=== PATIENT | male | born 1955 | race Caucasian/White ===

== ENCOUNTER 2018-04-05 15:46 | Inpatient (IN) ==
--- NOTE | 2018-04-05 20:49 | Internal Med History&Physical ---
Date of Encounter: 04/05/18 Time of Encounter: 20:49 Internal Medicine - H&P: HPI Chief complaint: LLE pain, redness, and swelling Admitted From: Home Plans for Post Hospital Care: Home History of present illness: Mr. Burciaga is a 63 year old male aneurysm, DM-II, diabetic neuropathy, Hodgkins lymphoma (pt states he is in remission), HTN, obesity, HLD who presents with LLE cellulitis. Pt states symptoms developed about 4 days ago ad has progressed up his left thigh to his left groin. He denies any bites or bruises he is aware of. He denies having any fevers or chills, N/V or diarrhea. He does report falling but he's not sure why. He is also unsure if he lost consciousness. In ED at [place] WBC 25.5, hgb 11.6, hct 35.0, plt 281. Na 135, K 5.7, BUN 34, Cr 1.86. HgbA1c 6.5. ALT 13, AST 38, alk phos 73 Urine analysis with small leuks, WBC 3-5 and few bacteria Chest x ray HISTORY: ORDERING SYSTEM PROVIDED HISTORY: cough FINDINGS: The heart size is enlarged but unchanged. The pulmonary vasculature is also within normal limits. No acute infiltrates are seen. The costophrenic angles are sharp bilaterally. No pneumothoraces are noted.There are scattered calcified granulomas. XR/XR chest 1V IMPRESSION: 1. No active pulmonary disease. CT LE CT/CT LE LT wo con IMPRESSION: 1. Subcutaneous stranding and skin thickening along the left groin and left mid thigh most suggestive of cellulitis. No organized drainable fluid collection identified. No evidence for subcutaneous gas. 2. Nonspecific subcutaneous edema of the distal left lower extremity. Correlate clinically for cellulitis. No organized fluid collection identified. 3. Left inguinal lymphadenopathy, likely reactive. 4. Small locule of gas with associated subcutaneous edema at the level of the great toe most compatible with ulceration. No drainable fluid collection identified. No CT evidence for osteomyelitis of the great toe. 5. No acute osseous abnormality identified. 6. Atherosclerotic disease. Past Med Surg Social Fam HX - Past Medical History Medical history: arthritis, cancer, diabetes, hypertension Additional medical history: irreg heart beat. pulm emboli 2011. 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 Psychiatric history: no psych history - Past Surgical History Surgical History: cancer surgery, cataract - Social History Smoking Status: Never smoker Smokeless Tobacco Status: No Alcohol use: none Drug use: none Internal Medicine - H&P: Meds Aspirin [Lo-Dose Aspirin EC] 81 mg PO DAILY 01/15/17 [History] Atenolol [Tenormin] 50 mg PO DAILY 01/15/17 [History] Atorvastatin Calcium 80 mg PO DAILY 01/15/17 [History] Ezetimibe [Zetia] 10 mg PO DAILY 01/15/17 [History] Gabapentin [Neurontin] 800 mg PO TID 01/15/17 [History] GlipiZIDE [Glipizide ER] 10 mg PO DAILY 01/15/17 [History] Lisinopril [Zestril] 40 mg PO DAILY 01/15/17 [History] Metformin HCl [Glucophage] 1,000 mg PO BID 01/15/17 [History] Allergy/AdvReac Type Severity Reaction Status Date / Time acetaminophen [From Percocet] Allergy Rash Verified 04/05/18 09:31 Oxycodone [From Percocet] Allergy Rash Verified 04/05/18 09:31 Penicillins Allergy Rash Verified 04/05/18 09:31 All Systems PM: A 10-system review of systems was performed and is negative for pertinent findings except as documented above in the HPI. - Constitutional Vitals: Temp Pulse Resp BP Pulse Ox 97.9 F 75 16 122/73 100 04/05/18 18:32 04/05/18 18:32 04/05/18 18:32 04/05/18 18:32 04/05/18 18:32 Exam: LLE erythema spreading from ankle to left groin. - Head Head exam: Present: atraumatic, normocephalic - Eye Eye exam: Present: PERRL, conjuntiva pink, sclera anicteric Pupils: Present: PERRL - Neck Neck exam general surgery: Present: supple, trachea midline. Absent: lymphadenopathy - Respiratory Respiratory exam: Present: CTAB. Absent: accessory muscle use, rales, rhonchi, wheezes - Cardiovascular Cardiovascular exam: Present: RRR, +S1, +S2. Absent: diastolic murmur, gallop, rubs, systolic murmur - GI/Abdominal GI/Abdominal exam: Present: normal bowel sounds, soft, no peritoneal signs. Absent: distended, tenderness - Extremities Exam Extremities exam: Present: warm, radial pulses palpable and symmetrical. Absent: calf tenderness, cyanotic, pedal edema - Neurological Exam Neurological exam: Present: CN II-XII intact, oriented X3, no focal deficits. Absent: pronater drift, facial droop, speech deficit - Skin Skin exam: Present: dry, intact - Assessment and plan (1) Cellulitis of left lower extremity Current Visit: No Status: Acute Assessment and plan: Pt treated with Cefepime dur o PCN allergy. Will continue Cefepime for now. (2) Hyperkalemia Current Visit: No Status: Acute Assessment and plan: Will recheck K following fluid hydration. (3) Rhabdomyolysis Current Visit: No Status: Acute Assessment and plan: CPK 1561. Will check urine myoglobin. Will give IVF and recheck levels in am. Qualifiers: Qualified Code(s): M62.82 - Rhabdomyolysis (4) Hyponatremia Current Visit: Yes Status: Acute Assessment and plan: Will give IVF and recheck in am. (5) History of Hodgkin's lymphoma Current Visit: Yes Status: Acute Assessment and plan: Pt states he is in remission (6) Diabetes Current Visit: Yes Status: Acute Qualifiers: Diabetes mellitus type: type 2 Diabetes mellitus terminal superintendent insulin use: without terminal superintendent use Diabetes mellitus complication detail: with autonomic neuropathy Qualified Code(s): E11.43 - Type 2 diabetes mellitus with diabetic autonomic (poly)neuropathy (7) HTN (hypertension) Current Visit: Yes Status: Acute Assessment and plan: Will resume Lisinopril and Atenolol Qualifiers: Qualified Code(s): I10 - Essential (primary) hypertension (8) Aneurysm Current Visit: Yes Status: Acute Assessment and plan: Pt reports hx of 5.6 cm aneurysm. Bruits audible during cardiac exam. States he has a follow up appointment with is vascular surgeon in [place] in 3 to 4 months - Time Spent With Patient Total time spent is greater than 50% in coordination of care (as documented) at patient's floor/unit and/or counseling patient: 25 - 35 minutes
[2018-04-05] MEDS ORDERED: Acetaminophen 325 MG TABLET PO PRN (21:05)
[2018-04-05] MEDS ORDERED: Naloxone 0.4 MG/ML INJ IVP PRN (21:05)
[2018-04-05] MEDS ORDERED: D5% in Water 1,000 ML IVC PRN (21:09)
[2018-04-05] MEDS ORDERED: Dextrose Gel 15 GM/37.5 ML TUBE PO PRN ×2 (21:09)
[2018-04-05] MEDS ORDERED: *HR* Dextrose 50 % in Water (Syg) 50 ML SYRINGE IVP PRN (21:09)
[2018-04-05] MEDS: 0.9 % Sodium Chloride 1,000 ML IVC SCH (21:36)
[2018-04-05 21:56] LABS: Estimated Average Glucose 146 mg/dl; Hemoglobin A1C 6.7 %
[2018-04-06] MEDS ORDERED: *HR* Enoxaparin 40 MG/0.4 ML SYRINGE SQ SCH (06:00)
[2018-04-06] MEDS: Cefepime HCl 1,000 MG in Water for inj. (sterile) 20 ML 10 ML IVP SCH ×2 (06:09→17:29)
[2018-04-06 07:02] LABS: Basophils % 0.1 %; Eosinophils % 0.1 %; Hematocrit 32.3 % (37.5-50.1); Hemoglobin 10.4 g/dL (12.9-16.9); Immature Granulocytes % 0.6 % (0-4); Lymphocytes # 0.9 K/mcL (0.6-4.6); Lymphocytes % 4.9 %; Mean Corpuscular HGB Conc 32.2 g/dL (31.6-35.5); Mean Corpuscular Hemoglobin 28.3 pg (28.0-33.3); Mean Corpuscular Volume 87.8 fL (83.0-100.0); Mean Platelet Volume 10.6 fL (9.4-12.4); Monocytes % 5.6 %; Neutrophils # 15.6 K/mcL (1.6-8.9); Platelet Count 236 K/mcL (140-400); Red Blood Count 3.68 M/mcL (4.19-5.50); Red Cell Distribution Width 15.1 % (11.5-14.5); Segmented Neutrophils % 88.7 %
[2018-04-06 07:19] LABS: Calcium 8.1 mg/dL (8.6-10.3); Potassium 5.2 mEq/L (3.5-5.1)
[2018-04-06] MEDS: Insulin LISPRO 300 UNITS/3 ML VIAL SQ SCH ×3 (07:43→16:36)
[2018-04-06] MEDS ORDERED: Lisinopril 20 MG TABLET PO SCH (09:00)
[2018-04-06] MEDS: Aspirin 81 MG TAB.CHEW PO SCH (09:13)
[2018-04-06] MEDS: 0.9 % Sodium Chloride 1,000 ML IVC SCH (11:55)
--- NOTE | 2018-04-06 18:04 | Internal Med Progress Note ---
Hospitalist Progress Note - Encounter Date of Encounter: 04/06/18 Time of Encounter: 18:01 - Subjective Interval History: Pt denies fever chills, N/V or diarrhea. He denies chest pain or SOB. Pt states LLE erythema about the same today. - Exam Vitals: Temp Pulse Resp BP Pulse Ox 98.7 F 76 15 105/70 98 04/06/18 14:42 04/06/18 14:42 04/06/18 14:42 04/06/18 14:42 04/06/18 14:42 Exam: Exam: LLE erythema spreading from ankle to left groin. - Head Head exam: Present: atraumatic, normocephalic - Eye Eye exam: Present: PERRL, conjuntiva pink, sclera anicteric Pupils: Present: PERRL - Neck Neck exam general surgery: Present: supple, trachea midline. Absent: lymphadenopathy - Respiratory Respiratory exam: Present: CTAB. Absent: accessory muscle use, rales, rhonchi, wheezes. - Cardiovascular Cardiovascular exam: Present: RRR, +S1, +S2. Absent: diastolic murmur, gallop, rubs, systolic murmur. Audible bruise - GI/Abdominal GI/Abdominal exam: Present: normal bowel sounds, soft, no peritoneal signs. Absent: distended, tenderness - Extremities Exam Extremities exam: Present: warm, radial pulses palpable and symmetrical. Absent : calf tenderness, cyanotic, pedal edema LLE erythema spreading from ankle to left groin. So far not extending beyond the map drawn. - Neurological Exam Neurological exam: Present: CN II-XII intact, oriented X3, no focal deficits. Absent: pronater drift, facial droop, speech deficit - Skin Skin exam: Present: dry, intact. LLE erythema spreading from ankle to left groin. So far not extending beyond the map drawn. - Assessment and Plan (1) Cellulitis of left lower extremity Current Visit: No Status: Acute Assessment and Plan: Pt treated with Cefepime due to PCN allergy. Will continue Cefepime for now. WBC down from 25.5 to 17.5. So far infection not extending out side of map drawn. (2) Renal insufficiency Current Visit: Yes Status: Acute Assessment and Plan: Pt states he is unaware of history of kidney issues. Will hold Lisinopril Will check retroperitoneal renal US Will continue to give IVF and monitor renal function daily. Will consult Nephrology in am (3) Hyperkalemia Current Visit: No Status: Acute Assessment and Plan: Repeat K following fluid hydration is still 5.2. Will give one time dose Kayexalate and continue IVF. Will recheck BMP in am (4) Rhabdomyolysis Current Visit: No Status: Acute Assessment and Plan: CPK 1561 [place], 1375 today. Will check urine myoglobin. Will give IVF and recheck levels in am. Per , pt had been having frequent falls (5) Hyponatremia Current Visit: Yes Status: Acute Assessment and Plan: Na improved with IVF and recheck in am. (6) History of Hodgkin's lymphoma Current Visit: Yes Status: Acute Assessment and Plan: Pt states he is in remission (7) Diabetes Current Visit: Yes Status: Acute Assessment and Plan: Levemir and SSI (8) HTN (hypertension) Current Visit: Yes Status: Acute Assessment and Plan: Will hold Lisinopril and continue Atenolol (9) Aneurysm Current Visit: Yes Status: Acute Assessment and Plan: Pt reports hx of 5.6 cm aneurysm. Currently asymptomatic Bruits audible during cardiac exam. Will check Abdominal US, avoiding contrast due to elevated Cr States he has a follow up appointment with is vascular surgeon in [place] in 3 to 4 months. (10) Fall Current Visit: Yes Status: Acute Assessment and Plan: fall precaution. Will consult PT/OT 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 Pt states symptoms developed about 4 days ago ad has progressed up his left thigh to his left groin. He denies any bites or bruises he is aware of. He denies having any fevers or chills, N/V or diarrhea. He does report falling but he's not sure why. He is also unsure if he lost consciousness. In ED at [place] WBC 25.5, hgb 11.6, hct 35.0, plt 281. Na 135, K 5.7, BUN 34, Cr 1.86. HgbA1c 6.5. ALT 13, AST 38, alk phos 73 Urine analysis with small leuks, WBC 3-5 and few bacteria - Time Spent with Patient Total time spent is greater than 50% in coordination of care (as documented) at patient's floor/unit and/or counseling patient: less than 15 minutes Plan of Care Discussed with: patient Internal Medicine: Result - Labs CBC & Chem 7: 04/06/18 06:05 04/06/18 06:05 Labs: Short CBC 04/06/18 Range/Units 06:05 WBC 17.5 H (4.3-11.1) K/mcL Hgb 10.4 L (12.9-16.9) g/dL Hct 32.3 L (37.5-50.1) % Plt Count 236 (140-400) K/mcL Neutrophils # 15.6 H (1.6-8.9) K/mcL BMP 04/06/18 06:05 Sodium 136 Potassium 5.2 H Chloride 109 H Carbon Dioxide 17 L BUN 38 H Creatinine 1.66 H Glucose 141 H Calcium 8.1 L Consult Discharge Plan - Plan Referrals: NONE,PCP [Primary Care Provider] - (4) Rhabdomyolysis Qualifiers: Qualified Code(s): M62.82 - Rhabdomyolysis (7) Diabetes Qualifiers: Diabetes mellitus type: type 2 Diabetes mellitus intermediate card tender insulin use: without intermediate card tender use Diabetes mellitus complication detail: with autonomic neuropathy Qualified Code(s): E11.43 - Type 2 diabetes mellitus with diabetic autonomic (poly)neuropathy (8) HTN (hypertension) Qualifiers: Qualified Code(s): I10 - Essential (primary) hypertension
[2018-04-06] MEDS ORDERED: Insulin DETEMIR 100 UNIT/ML X5UNITS SQ SCH (21:00)
[2018-04-07] MEDS: 0.9 % Sodium Chloride 1,000 ML IVC SCH ×2 (02:59→17:21)
[2018-04-07 05:15] LABS: Basophils % 0.2 %; Eosinophils # 0.1 K/mcL (0.0-0.6); Eosinophils % 0.7 %; Hematocrit 29.9 % (37.5-50.1); Hemoglobin 9.7 g/dL (12.9-16.9); Lymphocytes # 0.9 K/mcL (0.6-4.6); Lymphocytes % 6.7 %; Mean Corpuscular HGB Conc 32.4 g/dL (31.6-35.5); Mean Corpuscular Hemoglobin 28.3 pg (28.0-33.3); Mean Corpuscular Volume 87.2 fL (83.0-100.0); Mean Platelet Volume 10.8 fL (9.4-12.4); Monocytes # 0.9 K/mcL (0.0-1.3); Monocytes % 6.4 %; Neutrophils # 11.4 K/mcL (1.6-8.9); Platelet Count 219 K/mcL (140-400); Red Blood Count 3.43 M/mcL (4.19-5.50); Red Cell Distribution Width 14.9 % (11.5-14.5)
[2018-04-07 05:34] LABS: BUN/Creatinine Ratio 26 (6-26); Blood Urea Nitrogen 36 mg/dL (8-23); Calcium 7.9 mg/dL (8.6-10.3); Carbon Dioxide 17 mEq/L (23-29); Chloride 110 mEq/L (98-107); Creatine Kinase 653 Units/L (30-223); Glucose 104 mg/dL (70-105); Osmolality,Calculated 293 (280-300); Potassium 4.5 mEq/L (3.5-5.1); Sodium 137 mEq/L (136-145); eGFR For Non-African Americans 50 (> 60)
[2018-04-07] MEDS: *HR* Heparin 5,000 UNIT/ML VIAL SQ SCH ×2 (05:54→17:19)
[2018-04-07] MEDS: Cefepime HCl 1,000 MG in Water for inj. (sterile) 20 ML 10 ML IVP SCH ×2 (05:54→17:19)
[2018-04-07] MEDS: Aspirin 81 MG TAB.CHEW PO SCH (08:37)
[2018-04-07] MEDS: Insulin LISPRO 300 UNITS/3 ML VIAL SQ SCH ×3 (08:41→17:20)
--- NOTE | 2018-04-07 11:46 | Nephrology Consult Note ---
Date of Encounter: 04/07/18 Time of Encounter: 09:30 Assessment and Plan (1) MICHELLE (acute kidney injury) Current Visit: Yes Status: Acute Acute kidney injury, most likely prerenal and etiology since he has had yañez improvement and creatinine. Denied history of chronic kidney disease and has never seen a mapping specialist. No family history of chronic kidney disease. Denied taking NSAIDs. No difficulty urinating. Creatinine 1.41 (admission 1.86), baseline unknown GFR 50 (in 2014, GFR 50) creatinine kinase 653 (decreased from 1375) I&O: 1010/1025 today Plan: -patient likely has a prerenal acute kidney injury that may be back to baseline since a baseline is unknown and review of past GFR in 2014 with 50. Medications, vitals, labs, imaging reviewed. He does have a mildly elevated creatinine kinase with recent fall on Thursday however that has significantly decreased with current treatment with IV fluids, urinalysis is pending to evaluate if this is a rhabdomyolysis. -Retroperitoneal ultrasound and urinalysis pending -recommend to continue IVF -Continue to hold lisinopril -continue renal protective measures such as renal dust medications and avoid nephrotoxic agents -continue to monitor I&O (2) Anemia Current Visit: Yes Status: Acute Normocytic anemia. No prior history of known anemia or iron deficiency. Hemoglobin 9.7 (baseline 11) no obvious active bleeding, patient denied melena and hematochezia. He had a colonoscopy 2 years ago which was normal. History of Hodgkin lymphoma plan: -order iron panel to evaluate for iron deficiency Qualifiers: Qualified Code(s): D64.9 - Anemia, unspecified (3) Syncope Current Visit: Yes Status: Acute Patient reported having an episode of syncope that was witnessed by his and he does not remember the fall. He also reported his told him that he was talking and not making sense at one point on Thursday. He said he was also having difficulty getting out of bed that Thursday due to left lower extremity pain and may be weakness that he treated to the cellulitis. He stated that since then he has been back at his baseline and has had no confusion, difficulty speaking, weakness. He has never had a stroke or blood clot. He does have a history of Hodgkin lymphoma. -Recommend workup for syncope including head CT per primary team. I spoke with the hospitalist whom said they will call his to get a further history as he had not reported this to them. Qualifiers: Qualified Code(s): R55 - Syncope and collapse (4) Cellulitis of left lower extremity Current Visit: No Status: Acute Per primary team History of Present Illness - Reason for Consult Consult date: 04/06/18 Acute Kidney Injury Requesting physician: aTrah Avalos - Chief Complaint Left lower extremity pain, redness, swelling - History of Present Illness Mr. Burciaga is a 63yo female with PMH of diabetes, hypertension, Hodgkin lymphoma presented to [facility] complaining of left lower extremity swelling and redness. Nephrology was consulted due to acute kidney injury. The patient came to the ED due to left lower extremity redness and pain that was not improving and spread from his calf to his groin. Of note, he reported that on Thursday he had a syncopal episode those witnessed by his however he did not remember it. His also told that he was talking and not make sense. He stated that those symptoms resolved that Thursday and he is not had them since. She did not go to the ED but EMS did evaluate him and teachers not to go to the hospital. The patient denied history of kidney disease. The patient denied family history of kidney disease. He denied using NSAIDs. He denied history of anemia including iron deficiency. He denied melena, hematochezia, fever, chills, difficulty urinating. Past Med Surg Social Fam HX - Past Medical History Attestation: Yes The following information was validated with the patient. Source: patient Medical history: arthritis, cancer, diabetes, hypertension Additional medical history: irreg heart beat. pulm emboli 2011. 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 Psychiatric history: no psych history - Past Surgical History Surgical History: cancer surgery, cataract - Social History Smoking Status: Never smoker Smokeless Tobacco Status: No Alcohol use: none Drug use: none - Family History Father Hx Family Cancer: Yes (Brain cancer) Medications and Allergies Aspirin [Lo-Dose Aspirin EC] 81 mg PO DAILY 01/15/17 [History] Atenolol [Tenormin] 50 mg PO DAILY 01/15/17 [History] Atorvastatin Calcium 80 mg PO DAILY 01/15/17 [History] Ezetimibe [Zetia] 10 mg PO DAILY 01/15/17 [History] Gabapentin [Neurontin] 800 mg PO TID 01/15/17 [History] Lisinopril [Zestril] 40 mg PO DAILY 01/15/17 [History] Metformin HCl [Glucophage] 1,000 mg PO BID 01/15/17 [History] Finasteride [Proscar] 5 mg PO DAILY 04/06/18 [History] GlipiZIDE XL (24 HR) [Glucotrol XL] 10 mg PO DAILY 04/06/18 [History] Allergy/AdvReac Type Severity Reaction Status Date / Time acetaminophen [From Percocet] Allergy Rash Verified 04/06/18 13:06 Oxycodone [From Percocet] Allergy Rash Verified 04/06/18 13:06 Penicillins Allergy Rash Verified 04/06/18 13:06 Review of Systems Constitutional: frequent falls (Recent fall), no chills, no fatigue Nose, mouth and throat: no dizziness Cardiovascular: no chest pain, no edema, no palpitations Respiratory: no cough, no dyspnea, no wheezing Gastrointestinal: no abdominal pain, no diarrhea, no hematochezia, no melena, no nausea, no vomiting Genitourinary Male: no change in urinary stream, no difficulty urinating, no hematuria Integumentary: erythema (Left lower extremity), rash (Left lower extremity), skin pain (Left lower extremity) Neurological: confusion, syncope, no dizziness, no vertigo Psychiatric: no depression Exam - Vital Signs Vital signs: Initial Vital Signs Temp Pulse Resp BP Pulse Ox 97.9 F 75 16 122/73 100 04/05/18 18:32 04/05/18 18:32 04/05/18 18:32 04/05/18 18:32 04/05/18 18:32 Vital Signs - Last 8 Hours Temp Pulse Resp BP Pulse Ox 04/07/18 10:31 97.4 F L 82 16 106/72 95 04/07/18 07:06 98.2 F 71 16 110/71 98 04/07/18 04:05 98.8 F 75 15 107/64 97 Intake and Output 04/06/18 04/07/18 04/07/18 23:59 07:59 15:59 Intake Total 250 / 250 1010 / 1010 Output Total 100 / 100 700 / 700 325 / 325 Balance 150 / 150 310 / 310 -325 / -325 Intake: IV Fluids 1010 / 1010 0.9 % Sodium Chloride 1,000 ML 1000 / 1000 @ 75 mls/hr IVC .[id number] JORDY Rx #:[id number] Maxipime 1,000 MG In Water for inj. (sterile) 10 ML @ 300 mls/ hr IVP Q12HR JORDY Rx#:[id number] Oral 240 / 240 0 / 0 Output: Urine 100 / 100 700 / 700 325 / 325 Other: Meal Dinner NPO Percent of Meal Consumed 100% # Bowel Movements 0 0 Weight 123.4 kg Blood Glucose* 139 90 Patient Weight 04/07/18 23:59 Weight 123.4 kg - General Appearance Exam: Gen.: Vitals noted. No acute distress. AAOx3 HEENT: oropharynx clear, Normocephalic, atraumatic Neck: Supple. No adenopathy. Cardiac: RRR, no murmur, +S1/S2, no BLE edema, Pulmonary: CTA bilaterally, no wheezes, rales or rhonchi, equal chest expansion Abdomen: soft, nontender, Bowel sounds noted, no guarding MSK: ROM intact, no joint swelling noted Extremities: left lower extremity erythema from ankle up to groin, tender left lower extremity around erythema Neuro: A&Ox3, moves all extremities, no focal deficits, stocking and glove paresthesias upper and lower extremities bilaterally Psych: Appropriate mood and behavior Results - Lab Results 04/07/18 04:55 04/07/18 04:55 Most recent lab results Calcium 7.9 mg/dL (8.6-10.3) L 04/07/18 04:55 Consult Discharge Plan - Plan Referrals: NONE,PCP [Primary Care Provider] -
[2018-04-07 15:07] LABS: Bilirubin,Urine Negative (Negative); Blood,Urine Small (Negative); Clarity,Urine Clear (Clear); Color,Urine Yellow (Yellow); Glucose,Urine (UA) Normal (Normal); Ketones,Urine Negative (Negative); Leukocyte Esterase,Urine Small (Negative); Nitrite,Urine Negative (Negative); Protein,Urine 30 mg/dL (Neg-Trace); Specific Gravity,Urine 1.021 (1.010-1.025); Urobilinogen,Urine Normal (Normal)
[2018-04-07 15:11] LABS: Hyaline Casts,Urine None Seen per lpf (None-Few); RBC,Urine 0-3 per hpf (0-3); Squamous Epithelial Cell,Urine Many per lpf (None-Few)
[2018-04-07 15:24] LABS: % Iron Saturation 4 % (20-55); Iron 12 mcg/dL (65-175); Transferrin 196 mg/dL (203-362)
[2018-04-07 15:24] LABS: Bacteria,Urine Few per hpf (None-Few)
[2018-04-07 15:39] LABS: Ferritin 175 ng/mL (20-250)
--- NOTE | 2018-04-07 18:12 | Internal Med Progress Note ---
Hospitalist Progress Note - Encounter Date of Encounter: 04/07/18 Time of Encounter: 18:10 - Subjective Interval History: Pt denies fever chills, N/V or diarrhea. He denies chest pain or SOB. Pt states LLE erythema about the same today. - Exam Vitals: Temp Pulse Resp BP Pulse Ox 97.4 F L 63 15 123/75 94 04/07/18 14:06 04/07/18 14:06 04/07/18 14:06 04/07/18 14:06 04/07/18 14:06 Exam: Exam: LLE erythema spreading from ankle to left groin. - Head Head exam: Present: atraumatic, normocephalic - Eye Eye exam: Present: PERRL, conjuntiva pink, sclera anicteric Pupils: Present: PERRL - Neck Neck exam general surgery: Present: supple, trachea midline. Absent: lymphadenopathy - Respiratory Respiratory exam: Present: CTAB. Absent: accessory muscle use, rales, rhonchi, wheezes. - Cardiovascular Cardiovascular exam: Present: RRR, +S1, +S2. Absent: diastolic murmur, gallop, rubs, systolic murmur. Audible bruise - GI/Abdominal GI/Abdominal exam: Present: normal bowel sounds, soft, no peritoneal signs. Absent: distended, tenderness - Extremities Exam Extremities exam: Present: warm, radial pulses palpable and symmetrical. Absen t: calf tenderness, cyanotic, pedal edema LLE erythema spreading from ankle to left groin. So far not extending beyond the map drawn. - Neurological Exam Neurological exam: Present: CN II-XII intact, oriented X3, no focal deficits. Absent: pronater drift, facial droop, speech deficit - Skin Skin exam: Present: dry, intact. LLE erythema spreading from ankle to left groin. So far not extending beyond the map drawn. - Assessment and Plan (1) Cellulitis of left lower extremity Current Visit: No Status: Acute Assessment and Plan: Pt treated with Cefepime due to PCN allergy. Will continue Cefepime for now. WBC down from 25.5 to 17.5 to 13.4. So far infection not extending out side of map drawn Will continue to monitor (2) Renal insufficiency Current Visit: Yes Status: Acute Assessment and Plan: Pt states he is unaware of history of kidney issues. MICHELLE in setting of rhabdo Lisinopril on hold Retroperitoneal renal US showed several non-obstructing left renal calculi Will continue to give IVF and monitor renal function daily. Nephrology on board Checking urine analysis (3) Hyperkalemia Current Visit: No Status: Acute Assessment and Plan: Repeat K following fluid hydration is still 5.2. K corrected with IVF and without getting Kayexalate. Will recheck BMP in am (4) Rhabdomyolysis Current Visit: No Status: Acute Assessment and Plan: CPK 1561 [place], 1375 down to 653 Urine myoglobin ordered and in progress Will contninue IVF and recheck levels in am. Frequent falls (5) Hyponatremia Current Visit: Yes Status: Acute Assessment and Plan: Na improved with IVF and recheck in am. (6) History of Hodgkin's lymphoma Current Visit: Yes Status: Acute Assessment and Plan: Pt states he is in remission (7) Diabetes Current Visit: Yes Status: Acute Assessment and Plan: Levemir and SSI (8) HTN (hypertension) Current Visit: Yes Status: Acute Assessment and Plan: Will hold Lisinopril and continue Atenolol (9) Aneurysm Current Visit: Yes Status: Acute Assessment and Plan: Pt reports hx of 5.6 cm aneurysm. Currently asymptomatic Bruits audible during cardiac exam. Will check Abdominal US, avoiding contrast due to elevated Cr States he has a follow up appointment with is vascular surgeon in [place] in 3 to 4 months. (10) Fall Current Visit: Yes Status: Acute Assessment and Plan: fall precaution. PT/OT consulted Per , pt had been having frequent falls Attempted to contact but both listed phone where not working Non-contrast CT head CT/CT head/brain wo con IMPRESSION: No acute intracranial abnormality. 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 Pt states symptoms developed about 4 days ago ad has progressed up his left thigh to his left groin. He denies any bites or bruises he is aware of. He denies having any fevers or chills, N/V or diarrhea. He does report falling but he's not sure why. He is also unsure if he lost consciousness. In ED at [facility] WBC 25.5, hgb 11.6, hct 35.0, plt 281. Na 135, K 5.7, BUN 34, Cr 1.86. HgbA1c 6.5. ALT 13, AST 38, alk phos 73 Urine analysis with small leuks, WBC 3-5 and few bacteria - Time Spent with Patient Total time spent is greater than 50% in coordination of care (as documented) at patient's floor/unit and/or counseling patient: less than 15 minutes Plan of Care Discussed with: patient Internal Medicine: Result - Labs CBC & Chem 7: 04/07/18 04:55 04/07/18 04:55 Labs: Short CBC 04/07/18 Range/Units 04:55 WBC 13.4 H (4.3-11.1) K/mcL Hgb 9.7 L (12.9-16.9) g/dL Hct 29.9 L (37.5-50.1) % Plt Count 219 (140-400) K/mcL Neutrophils # 11.4 H (1.6-8.9) K/mcL BMP 04/07/18 04:55 Sodium 137 Potassium 4.5 Chloride 110 H Carbon Dioxide 17 L BUN 36 H Creatinine 1.41 H Glucose 104 Calcium 7.9 L Urine 04/07/18 Range/Units 14:25 Urine Color Yellow (Yellow) Urine Clarity Clear (Clear) Urine pH 5.0 (5.0-8.0) pH Units Ur Specific [place] 1.021 (1.010-1.025) Urine Protein 30 H (Neg-Trace) mg/dL Urine Glucose (UA) Normal (Normal) mg/dL - Impressions Impressions Aorta Ultrasound 04/07/18 11:00 IMPRESSION: No evidence of abdominal aortic aneurysm. D/ / Ihsan Herring MD / Ihsan Herring MD Interpreting Provider: Ihsan Herring MD Retroperitoneum Ultrasound 04/07/18 11:00 IMPRESSION: Shadowing endo admitting from the right renal pelvis without calculus visualized. Although nonspecific, finding could be related to gas in the renal collecting system. Recommend noncontrast CT for further evaluation. Mild left hydronephrosis, improved from the prior CT dated 09/29/2012. Several nonobstructing left calculi. The findings were sent to the [facility] at 1:22 pm on 04/07/2018to be communicated to a licensed caregiver. D/ / Ihsan Herring MD / Ihsan Herring MD Interpreting Provider: Ihsan Herring MD Head CT 04/07/18 14:37 IMPRESSION: No acute intracranial abnormality. D/ / Zakia Meek MD / Zakia Meek MD Interpreting Provider: Zakia Meek MD Consult Discharge Plan - Plan Referrals: NONE,PCP [Primary Care Provider] - (4) Rhabdomyolysis Qualifiers: Qualified Code(s): M62.82 - Rhabdomyolysis (7) Diabetes Qualifiers: Diabetes mellitus type: type 2 Diabetes mellitus termite control representative insulin use: without termite control representative use Diabetes mellitus complication detail: with autonomic neuropathy Qualified Code(s): E11.43 - Type 2 diabetes mellitus with diabetic autonomic (poly)neuropathy (8) HTN (hypertension) Qualifiers: Qualified Code(s): I10 - Essential (primary) hypertension
[2018-04-07] MEDS: Insulin DETEMIR 100 UNIT/ML X5UNITS SQ SCH (21:20)
[2018-04-08 05:37] LABS: Basophils # 0.1 K/mcL (0.0-0.2); Basophils % 0.4 %; Eosinophils # 0.1 K/mcL (0.0-0.6); Eosinophils % 0.7 %; Hematocrit 33.7 % (37.5-50.1); Immature Granulocytes % 1.3 % (0-4); Lymphocytes % 8.1 %; Mean Corpuscular HGB Conc 32.6 g/dL (31.6-35.5); Mean Corpuscular Hemoglobin 28.4 pg (28.0-33.3); Mean Corpuscular Volume 87.1 fL (83.0-100.0); Mean Platelet Volume 10.7 fL (9.4-12.4); Monocytes % 7.8 %; Neutrophils # 10.2 K/mcL (1.6-8.9); Platelet Count 312 K/mcL (140-400); Red Blood Count 3.87 M/mcL (4.19-5.50); Red Cell Distribution Width 15.1 % (11.5-14.5); Segmented Neutrophils % 81.7 %
[2018-04-08 06:01] LABS: BUN/Creatinine Ratio 24 (6-26); Blood Urea Nitrogen 35 mg/dL (8-23); Calcium 8.6 mg/dL (8.6-10.3); Carbon Dioxide 17 mEq/L (23-29); Chloride 110 mEq/L (98-107); Creatine Kinase 384 Units/L (30-223); Glucose 139 mg/dL (70-105); Osmolality,Calculated 292 (280-300); Potassium 4.6 mEq/L (3.5-5.1); Sodium 136 mEq/L (136-145); eGFR For Non-African Americans 50 (> 60)
[2018-04-08] MEDS: Cefepime HCl 1,000 MG in Water for inj. (sterile) 20 ML 10 ML IVP SCH (06:25)
[2018-04-08] MEDS: *HR* Heparin 5,000 UNIT/ML VIAL SQ SCH ×2 (06:57→17:58)
[2018-04-08] MEDS: Aspirin 81 MG TAB.CHEW PO SCH (09:16)
[2018-04-08] MEDS: Insulin LISPRO 300 UNITS/3 ML VIAL SQ SCH ×3 (09:17→16:42)
--- NOTE | 2018-04-08 11:09 | Nephrology Progress Note ---
Date of Encounter: 04/08/18 Time of Encounter: 10:15 - Assessment and Plan (1) MICHELLE (acute kidney injury) Current Visit: Yes Status: Acute Acute kidney injury, most likely prerenal etiology with history of type II diabetes on metformin and an cameron inhibitor. Denied history of chronic kidney disease and has never seen a circuit court judge. No family history of chronic kidney disease. Denied taking NSAIDs. No difficulty urinating. -Creatinine 1.43 (admission 1.86), baseline unknown -GFR 50 (in 2014, GFR 50) -creatinine kinase 384 (decreased from 1375) -I&O: today -retroperitoneal ultrasound demonstrating gas in the right renal pelvis and several non obstructing left calculi. -Urinalysis demonstrating positive leukocyte esterase, blood, WBC -CT abdomen/pelvis demonstrate no abnormality with the kidneys Plan: -the patient's creatinine has improved and is likely at his baseline since a baseline is unknown and review of past GFR in 2013 with 50. Will plan to follow up outpatient. Patient should have a repeat BMP in one week. May resume lisinopril but continue to hold metformin until he follows up with his PCP. Will sign off at this time. Thank you. (2) Anemia Current Visit: Yes Status: Acute Normocytic anemia. No prior history of known anemia or iron deficiency. Hemoglobin 11 (baseline 11) no obvious active bleeding, patient denied melena and hematochezia. He had a colonoscopy 2 years ago which was normal. History of Hodgkin lymphoma -iron 12, 4% saturation, transferrin 196, ferritin 175 plan: -iron studies demonstrate iron deficiency anemia. Will start patient on ferrous sulfate supplementation Qualifiers: Qualified Code(s): D64.9 - Anemia, unspecified (3) Syncope Current Visit: Yes Status: Acute Patient reported having an episode of syncope that was witnessed by his and he does not remember the fall. He also reported his told him that he was talking and not making sense at one point on Thursday. He said he was also having difficulty getting out of bed that Thursday due to left lower extremity pain and may be weakness that he treated to the cellulitis. He stated that since then he has been back at his baseline and has had no confusion, difficulty speaking, weakness. He has never had a stroke or blood clot. He does have a history of Hodgkin lymphoma. -Recommend workup for syncope. I spoke with the hospitalist whom said they will call his to get a further history as he had not reported this to them. -Head CT returned negative for acute intracranial abnormality Qualifiers: Qualified Code(s): R55 - Syncope and collapse (4) Cellulitis of left lower extremity Current Visit: No Status: Acute Per primary team Subjective Principal diagnosis: Cellulitis of left lower extremity Interval history: Patient seen and examined at bedside. He is alert and oriented times 3. Nursing reports that he had been confused last night and required a sitter after he had called 911, and his and was acting confused. He denied fever, chills, nausea, vomiting, difficulty urinating. He had no complaints at this time. Objective - Vital Signs Vital signs: Vital Signs Temp Pulse Resp BP Pulse Ox 04/07/18 20:49 98.1 F 57 16 124/71 100 04/07/18 14:06 97.4 F L 63 15 123/75 94 Intake and Output 04/07/18 04/08/18 04/08/18 23:59 07:59 15:59 Intake Total 1010 / 1010 Balance 1010 / 1010 Intake: IV Fluids 1010 / 1010 0.9 % Sodium Chloride 1,000 ML 1000 / 1000 @ 75 mls/hr IVC .[id number] JORDY Rx #:[id number] Maxipime 1,000 MG In Water for inj. (sterile) 10 ML @ 300 mls/ hr IVP Q12HR JORDY Rx#:[id number] Oral 0 / 0 Other: Meal Dinner Percent of Meal Consumed 100% # Voids 1 2 Blood Glucose* 150 114 - General Appearance Exam: Gen.: Vitals noted. No acute distress. AAOx3 HEENT: oropharynx clear, Normocephalic, atraumatic Neck: Supple. No adenopathy. Cardiac: regular rate rhythm, aortic valve pansystolic murmur, +S1/S2, no BLE edema, Pulmonary: CTA bilaterally, no wheezes, rales or rhonchi, equal chest expansion Abdomen: soft, nontender, Bowel sounds noted, no guarding MSK: ROM intact, no joint swelling noted Extremities: left lower extremity erythema from ankle up to groin, tender left lower extremity around erythema Neuro: A&Ox3, moves all extremities, no focal deficits, stocking and glove paresthesias upper and lower extremities bilaterally Psych: Appropriate mood and behavior - Lab 04/08/18 05:15 04/08/18 05:15 Most recent lab results Calcium 8.6 mg/dL (8.6-10.3) 04/08/18 05:15 Consult Discharge Plan - Plan Referrals: Gloria Pinedo MD [Non-Partnered Physician] - Jhonathan Rae DO [Partnered Physician] -
[2018-04-08] MEDS: Cefepime HCl 2,000 MG in Water for inj. (sterile) 20 ML 20 ML IVP SCH (17:57)
--- NOTE | 2018-04-08 18:43 | Internal Med Progress Note ---
Hospitalist Progress Note - Encounter Date of Encounter: 04/08/18 Time of Encounter: 18:39 - Subjective Interval History: Pt denies fever chills, N/V or diarrhea. He denies chest pain or SOB. Pt states LLE erythema about the same again today. Pt states he does not feel it's improved much. Though WBC trending down. Nurse reports pt had episode of confusion last evening, which resolved this morning. ? . Pt is overall poor historian. I have been unable to reach pt's . Planned to call to get ETOH history, CVA history etc as pt had been reporting recurrent falls. PT/OT recommending SNF at discharge and may need precert - Exam Vitals: Temp Pulse Resp BP Pulse Ox 97.4 F L 60 16 99/58 99 04/08/18 15:53 04/08/18 15:53 04/08/18 15:53 04/08/18 15:53 04/08/18 15:53 Exam: Exam: LLE erythema spreading from ankle to left groin. - Head Head exam: Present: atraumatic, normocephalic - Eye Eye exam: Present: PERRL, conjuntiva pink, sclera anicteric Pupils: Present: PERRL - Neck Neck exam general surgery: Present: supple, trachea midline. Absent: lymphadenopathy - Respiratory Respiratory exam: Present: CTAB. Absent: accessory muscle use, rales, rhonchi, wheezes. - Cardiovascular Cardiovascular exam: Present: RRR, +S1, +S2. Absent: diastolic murmur, gallop, rubs, systolic murmur. Audible bruise - GI/Abdominal GI/Abdominal exam: Present: normal bowel sounds, soft, no peritoneal signs. Absent: distended, tenderness - Extremities Exam Extremities exam: Present: warm, radial pulses palpable and symmetrical. Abse nt: calf tenderness, cyanotic, pedal edema LLE erythema spreading from ankle to left groin. So far not extending beyond the map drawn. - Neurological Exam Neurological exam: Present: CN II-XII intact, oriented X3, no focal deficits. Absent: pronater drift, facial droop, speech deficit - Skin Skin exam: Present: dry, intact. LLE erythema spreading from ankle to left groin. So far not extending beyond the map drawn ut no significant change. - Assessment and Plan (1) Cellulitis of left lower extremity Current Visit: No Status: Acute Assessment and Plan: Pt treated with Cefepime due to PCN allergy. Will continue Cefepime but will increase dose and add Vancomycin. WBC down from 25.5 to 17.5 to 13.4 to 12.4. So far infection not extending out side of map drawn but not significantly improved Will continue to monitor (2) Renal insufficiency Current Visit: Yes Status: Acute Assessment and Plan: Pt states he is unaware of history of kidney issues. 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 Lisinopril on hold but nephro states ok to resume and signing off. Retroperitoneal renal US showed several non-obstructing left renal calculi Will continue to give IVF and monitor renal function daily. Urine analysis and no culture sent (3) Hyperkalemia Current Visit: No Status: Acute Assessment and Plan: Repeat K fresolved. K corrected with IVF and without getting Kayexalate. Will recheck BMP in am (4) Rhabdomyolysis Current Visit: No Status: Acute Assessment and Plan: CPK 1561 [place], 1375 down to 653 down to 384 Urine myoglobin ordered and in progress Will contninue IVF and recheck levels in am. Likely due to frequent falls (5) Hyponatremia Current Visit: Yes Status: Acute Assessment and Plan: Na improved with IVF and recheck in am. (6) History of Hodgkin's lymphoma Current Visit: Yes Status: Acute Assessment and Plan: Pt states he is in remission (7) Diabetes Current Visit: Yes Status: Acute Assessment and Plan: Levemir and SSI (8) HTN (hypertension) Current Visit: Yes Status: Acute Assessment and Plan: Will resume Lisinopril and continue Atenolol (9) Aneurysm Current Visit: Yes Status: Acute Assessment and Plan: Pt reports hx of 5.6 cm aneurysm. Currently asymptomatic. CT abd shows stable ascending thoracic aortic aneurysm. Bruits audible during cardiac exam. States he has a follow up appointment with is vascular surgeon in [place] in [address] abd and pelvis CT/CT abd pelvis wo no iv no oral IMPRESSION: 1. No CT finding to account for patient's abdominal pain. 2. Left nephrolithiasis with diffuse thinning of the left renal cortex, likely chronic. 3. Mildly enlarged pelvic and left inguinal nodes, significantly decreased in size compared to older exam of September 29, 2012. 4. Stable ascending thoracic aortic aneurysm. 5. Coronary artery disease. (10) Fall Current Visit: Yes Status: Acute Assessment and Plan: fall precaution. PT/OT consulting Per pt, states pt had been having frequent falls but pt does not recall Attempted to contact but both listed phone where not working Non-contrast CT head CT/CT head/brain wo con IMPRESSION: No acute intracranial abnormality. (11) Confusion Current Visit: Yes Status: Acute Assessment and Plan: CT head showed no acute intracranial abnormality. No evidence of delirium or tremors at this time. 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 Pt states symptoms developed about 4 days ago ad has progressed up his left thi gh to his left groin. He denies any bites or bruises he is aware of. He denies having any fevers or chills, N/V or diarrhea. He does report falling but he's not sure why. He is also unsure if he lost consciousness. In ED at [facility] WBC 25.5, hgb 11.6, hct 35.0, plt 281. Na 135, K 5.7, BUN 34, Cr 1.86. HgbA1c 6.5. ALT 13, AST 38, alk phos 73 Urine analysis with small leuks, WBC 3-5 and few bacteria - Time Spent with Patient Total time spent is greater than 50% in coordination of care (as documented) at patient's floor/unit and/or counseling patient: less than 15 minutes Plan of Care Discussed with: patient Internal Medicine: Result - Labs CBC & Chem 7: 04/08/18 05:15 04/08/18 05:15 Labs: Short CBC 04/08/18 Range/Units 05:15 WBC 12.4 H (4.3-11.1) K/mcL Hgb 11.0 L (12.9-16.9) g/dL Hct 33.7 L (37.5-50.1) % Plt Count 312 (140-400) K/mcL Neutrophils # 10.2 H (1.6-8.9) K/mcL BMP 04/08/18 05:15 Sodium 136 Potassium 4.6 Chloride 110 H Carbon Dioxide 17 L BUN 35 H Creatinine 1.43 H Glucose 139 H Calcium 8.6 - Impressions Impressions Abdomen/Pelvis CT 04/08/18 09:00 IMPRESSION: 1. No CT finding to account for patient's abdominal pain. 2. Left nephrolithiasis with diffuse thinning of the left renal cortex, likely chronic. 3. Mildly enlarged pelvic and left inguinal nodes, significantly decreased in size compared to older exam of September 29, 2012. 4. Stable ascending thoracic aortic aneurysm. 5. Coronary artery disease. D/ / 04/08/2018 10:25:39 Roddy Dill MD / bcarter Interpreting Provider: Roddy Dill MD Brain MRI 04/08/18 15:40 IMPRESSION: No acute intracranial abnormality. Mild chronic microvascular ischemic disease. D/ / 04/08/2018 17:48:10 Liana Fierro MD / lgray Interpreting Provider: Liana Fierro MD Consult Discharge Plan - Plan Referrals: Gloria Pinedo MD [Non-Partnered Physician] - Jhonathan Rae DO [Partnered Physician] - 05/19/18 2:10 pm (Please have your BMP lab work in 1 week after discharge. Thank you) (4) Rhabdomyolysis Qualifiers: Qualified Code(s): M62.82 - Rhabdomyolysis (7) Diabetes Qualifiers: Diabetes mellitus type: type 2 Diabetes mellitus intermediate insulin use: without intermediate use Diabetes mellitus complication detail: with autonomic neuropathy Qualified Code(s): E11.43 - Type 2 diabetes mellitus with diabetic autonomic (poly)neuropathy (8) HTN (hypertension) Qualifiers: Qualified Code(s): I10 - Essential (primary) hypertension
[2018-04-08] MEDS: Gabapentin 400 MG CAPSULE PO SCH (21:45)
[2018-04-08] MEDS: Insulin DETEMIR 100 UNIT/ML X5UNITS SQ SCH (21:45)
[2018-04-09 03:35] LABS: Basophils % 0.3 %; Eosinophils # 0.1 K/mcL (0.0-0.6); Eosinophils % 0.8 %; Immature Granulocytes % 2.6 % (0-4); Lymphocytes # 1.5 K/mcL (0.6-4.6); Lymphocytes % 13.2 %; Mean Corpuscular HGB Conc 31.3 g/dL (31.6-35.5); Mean Corpuscular Hemoglobin 27.4 pg (28.0-33.3); Mean Corpuscular Volume 87.5 fL (83.0-100.0); Mean Platelet Volume 10.2 fL (9.4-12.4); Monocytes # 1.2 K/mcL (0.0-1.3); Monocytes % 10.4 %; Neutrophils # 8.1 K/mcL (1.6-8.9); Platelet Count 280 K/mcL (140-400); Red Blood Count 3.43 M/mcL (4.19-5.50); Red Cell Distribution Width 14.9 % (11.5-14.5); Segmented Neutrophils % 72.7 %
[2018-04-09 03:42] LABS: Hemoglobin 9.4 g/dL (12.9-16.9)
[2018-04-09] MEDS: Cefepime HCl 2,000 MG in Water for inj. (sterile) 20 ML 20 ML IVP SCH ×2 (06:22→18:33)
[2018-04-09] MEDS: *HR* Heparin 5,000 UNIT/ML VIAL SQ SCH ×2 (06:30→18:33)
[2018-04-09] MEDS: Insulin LISPRO 300 UNITS/3 ML VIAL SQ SCH ×3 (07:51→16:18)
[2018-04-09] MEDS: Aspirin 81 MG TAB.CHEW PO SCH (08:38)
[2018-04-09] MEDS: Gabapentin 400 MG CAPSULE PO SCH ×3 (08:38→21:54)
--- NOTE | 2018-04-09 15:17 | Internal Med Progress Note ---
Hospitalist Progress Note - Encounter Date of Encounter: 04/09/18 Time of Encounter: 11:30 - Subjective Interval History: Patient states that he is finally feeling that his L lower extremity is improving; less erythematous and swollen as before. Denies fever/chills, nausea/vomiting, or diarrhea. - Exam Vitals: Temp Pulse Resp BP Pulse Ox 97.7 F 66 16 100/69 100 04/09/18 14:53 04/09/18 14:53 04/09/18 14:53 04/09/18 14:53 04/09/18 14:53 Exam: General: Alert and oriented, not in acute distress. Cardiovascular:Normal S1 & S2, No JVD. Pulse regular. Lungs: clear to auscultation, no wheezes/rales Abdomen:Soft, non-tender, no rigidity. Extremities: LLE area of erythema is decreasing compared to the initial marking, slightly warm to touch, no localized areas of fluctuance or collection Neurological:Normal cognition and motor skills. Non-focal - Assessment and Plan (1) Cellulitis of left lower extremity Current Visit: Yes Status: Acute Assessment and Plan: Pt treated with Cefepime due to PCN allergy, vanc added yesterday due to lack of significant clinical improvement areas of erythema and warmth started to improve, WBC continues to trend down will continue vanc/cefepime, likely transition to PO abx tomorrow and discharge home with home health discussed with case management in detail regarding disposition pending updated PT/OT input (2) Renal insufficiency Current Visit: Yes Status: Resolved Assessment and Plan: Pt states he is unaware of history of kidney issues. Acute on chronic kidney failure in setting of L LE cellulitis and rhabdo Seen by nephrology, pt likely has CKD III/IV at baseline. Cr close to his baseline and rhabdo resolved. Will d/c IVF and encourage oral intake Avoid nephrotoxins, renally adjusted antibiotics Retroperitoneal renal US showed several non-obstructing left renal calculi (3) Rhabdomyolysis Current Visit: Yes Status: Resolved Assessment and Plan: CPK 1561 [address] [place], resolved with IVF (4) Diabetes Current Visit: No Status: Chronic Assessment and Plan: Continue Levemir and low-dose sliding scale Metformin and glipizide on hold (5) History of Hodgkin's lymphoma Current Visit: Yes Status: Acute Assessment and Plan: Pt states he is in remission (6) HTN (hypertension) Current Visit: Yes Status: Acute Assessment and Plan: Continue home dose of atenolol and lisinopril (7) Aneurysm Current Visit: Yes Status: Acute Assessment and Plan: Pt reports hx of 5.6 cm aneurysm. Currently asymptomatic. CT abd shows stable ascending thoracic aortic aneurysm. States he has a follow up appointment with is vascular surgeon in [place] in 3 to 4 months. (8) Hyperkalemia Current Visit: No Status: Resolved Assessment and Plan: K corrected with IVF and without getting Kayexalate. Continue to monitor lisinopril resumed DVT Prophylaxis: Subcutaneous heparin - Time Spent with Patient Total time spent is greater than 50% in coordination of care (as documented) at patient's floor/unit and/or counseling patient: Plan of Care Discussed with: patient Internal Medicine: Result - Labs CBC & Chem 7: 04/09/18 03:09 04/08/18 05:15 Labs: Short CBC 04/09/18 Range/Units 03:09 WBC 11.2 H (4.3-11.1) K/mcL Hgb 9.4 L D (12.9-16.9) g/dL Hct 30.0 L (37.5-50.1) % Plt Count 280 (140-400) K/mcL Neutrophils # 8.1 (1.6-8.9) K/mcL - Impressions Impressions Brain MRI 04/08/18 15:40 IMPRESSION: No acute intracranial abnormality. Mild chronic microvascular ischemic disease. D/ / 04/08/2018 17:48:10 Liana Fierro MD / lgray Interpreting Provider: Liana Fierro MD Consult Discharge Plan - Plan Referrals: Gloria Pinedo MD [Non-Partnered Physician] - Jhonathan Rae DO [Partnered Physician] - 05/19/18 2:10 pm (Please have your BMP lab work in 1 week after discharge. Thank you) (3) Rhabdomyolysis Qualifiers: Rhabdomyolysis type: non-traumatic Qualified Code(s): M62.82 - Rhabdomyolysis (4) Diabetes Qualifiers: Diabetes mellitus type: type 2 Diabetes mellitus long term care pharmacist insulin use: without long term care pharmacist use Diabetes mellitus complication detail: with autonomic neuropathy Qualified Code(s): E11.43 - Type 2 diabetes mellitus with diabetic autonomic (poly)neuropathy (6) HTN (hypertension) Qualifiers: Hypertension type: unspecified Qualified Code(s): I10 - Essential (primary) hypertension
[2018-04-09] MEDS: Insulin DETEMIR 100 UNIT/ML X5UNITS SQ SCH (21:54)
[2018-04-10 04:03] LABS: Basophils # 0.1 K/mcL (0.0-0.2); Basophils % 0.9 %; Eosinophils # 0.2 K/mcL (0.0-0.6); Eosinophils % 2.3 %; Hematocrit 29.6 % (37.5-50.1); Hemoglobin 9.6 g/dL (12.9-16.9); Immature Granulocytes % 4.6 % (0-4); Lymphocytes # 1.1 K/mcL (0.6-4.6); Lymphocytes % 10.7 %; Mean Corpuscular HGB Conc 32.4 g/dL (31.6-35.5); Mean Corpuscular Hemoglobin 28.1 pg (28.0-33.3); Mean Corpuscular Volume 86.5 fL (83.0-100.0); Mean Platelet Volume 10.6 fL (9.4-12.4); Monocytes # 0.7 K/mcL (0.0-1.3); Monocytes % 6.9 %; Neutrophils # 7.9 K/mcL (1.6-8.9); Platelet Count 313 K/mcL (140-400); Red Blood Count 3.42 M/mcL (4.19-5.50); Red Cell Distribution Width 14.9 % (11.5-14.5); Segmented Neutrophils % 74.6 %
[2018-04-10 04:19] LABS: BUN/Creatinine Ratio 27 (6-26); Blood Urea Nitrogen 36 mg/dL (8-23); Calcium 8.1 mg/dL (8.6-10.3); Carbon Dioxide 16 mEq/L (23-29); Chloride 113 mEq/L (98-107); Glucose 131 mg/dL (70-105); Osmolality,Calculated 294 (280-300); Potassium 4.4 mEq/L (3.5-5.1); Sodium 137 mEq/L (136-145); eGFR For Non-African Americans 54 (> 60)
[2018-04-10] MEDS: Cefepime HCl 2,000 MG in Water for inj. (sterile) 20 ML 20 ML IVP SCH (05:49)
[2018-04-10] MEDS: *HR* Heparin 5,000 UNIT/ML VIAL SQ SCH ×2 (05:50→05:55)
[2018-04-10] MEDS: Insulin LISPRO 300 UNITS/3 ML VIAL SQ SCH ×3 (07:57→12:01)
[2018-04-10] MEDS: Gabapentin 400 MG CAPSULE PO SCH (08:47)
[2018-04-10] MEDS: Aspirin 81 MG TAB.CHEW PO SCH (08:47)
[2018-04-10] MEDS ORDERED: Finasteride 5 MG TABLET PO SCH (09:00)
[2018-04-10] MEDS ORDERED: Lisinopril 20 MG TABLET PO SCH (09:00)
[2018-04-10] MEDS ORDERED: (Ezetimibe [Zetia] 10 MG) PO SCH (09:00)
[2018-04-10 10:27] VITALS: BP 111/77
--- NOTE | 2018-04-10 11:48 | Discharge Summary ---
- NOTES TO OUTPATIENT PROVIDER Notes to Outpatient Provider: Patient was admitted for left lower extremity cellulitis. Initially refractory to cefepime but started to have improvement after vancomycin was added. He will be discharged home on doxy/levaquin for 7 days and close outpatient follow up. Orders not resulted at time of discharge: Pending orders 04/06/18 18:36 Myoglobin Routine 04/10/18 15:00 Vancomycin,Trough Timed Date of Encounter: 04/10/18 Time of Encounter: 08:15 - Discharge Diagnosis (1) Cellulitis of left lower extremity Priority: Primary Status: Acute (2) Renal insufficiency Priority: Secondary Status: Resolved (3) Rhabdomyolysis Priority: Secondary Status: Resolved Qualifiers: Rhabdomyolysis type: non-traumatic Qualified Code(s): M62.82 - Rhabdom yolysis (4) Diabetes Priority: Secondary Status: Chronic Qualifiers: Diabetes mellitus type: type 2 Diabetes mellitus warp starter insulin use: without assisted use Diabetes mellitus complication detail: with autonomic neuropathy Qualified Code(s): E11.43 - Type 2 diabetes mellitus with diabetic autonomic (poly)neuropathy (5) History of Hodgkin's lymphoma Priority: Secondary Status: Acute (6) HTN (hypertension) Priority: Secondary Status: Acute Qualifiers: Hypertension type: unspecified Qualified Code(s): I10 - Essential (primary) hypertension (7) Aneurysm Priority: Secondary Status: Acute (8) Hyperkalemia Priority: Secondary Status: Resolved Hospital course: Mr. Burciaga is a 63 year old male with history of diabetes, hypertension was admitted for left lower extremity cellulitis, extending from distal calf to mid thigh. Initially refractory to cefepime but started to have improvement after vancomycin was added with resolution of leukocytosis. He will be discharged home on doxy/levaquin for 7 days and close outpatient follow up. Discharge discussed with: patient - Time Spent with Patient Total time spent providing and/or coordinating discharge services: 31 mins - Discharge Medications Prescriptions: Doxycycline 100 mg PO BID 7 Days #14 capsule Ferrous Sulfate 325 mg PO DAILY@0800 #30 tablet levoFLOXacin [Levaquin] 750 mg PO DAILY 7 Days #7 tablet Home Medications: Aspirin [Lo-Dose Aspirin EC] 81 mg PO DAILY 01/15/17 [History] Atenolol [Tenormin] 50 mg PO DAILY 01/15/17 [History] Atorvastatin Calcium 80 mg PO DAILY 01/15/17 [History] Ezetimibe [Zetia] 10 mg PO DAILY 01/15/17 [History] Gabapentin [Neurontin] 800 mg PO TID 01/15/17 [History] Lisinopril [Zestril] 40 mg PO DAILY 01/15/17 [History] Metformin HCl [Glucophage] 1,000 mg PO BID 01/15/17 [History] Finasteride [Proscar] 5 mg PO DAILY 04/06/18 [History] GlipiZIDE XL (24 HR) [Glucotrol XL] 10 mg PO DAILY 04/06/18 [History] Doxycycline 100 mg PO BID 7 Days #14 capsule 04/10/18 [Rx] Ferrous Sulfate 325 mg PO DAILY@0800 #30 tablet 04/10/18 [Rx] levoFLOXacin [Levaquin] 750 mg PO DAILY 7 Days #7 tablet 04/10/18 [Rx] Allergies/Adverse Reactions: Allergy/AdvReac Type Severity Reaction Status Date / Time acetaminophen [From Percocet] Allergy Rash Verified 04/06/18 13:06 Oxycodone [From Percocet] Allergy Rash Verified 04/06/18 13:06 Penicillins Allergy Rash Verified 04/06/18 13:06 Date of admission: 04/05/18 21:05 Primary care physician: PCP NONE Consults: 04/06/18 08:11 Consult to Nutrition [CONS] Routine Comment: Consulting Provider: NUTRITION Reason for Dietary Consult: PO Supplementation Consult to Physical Therapy [CONS] Routine Comment: Evaluate, develop and implement POC Reason for Consult: dispostion Does patient have active BEDREST order?: No Is patient medically & hemodynamically stable?: Yes Patient assessed for mobility or mobilized this visit?: Yes OT [Consult to Occupational Therapy] [CONS] Routine Comment: Evaluate, develop and implement POC Reason for Consult: disposition Does patient have active BEDREST order?: No Is patient medically & hemodynamically stable?: Yes Patient assessed for mobility or mobilized this visit?: Yes 04/06/18 18:19 Consult to Nephrology [CONS] Routine Consulting Provider: Kidney Radha/SAHIL/REBECCA/MAEGAN Reason for Consult: renal insufficiency Call Completed: No - Constitutional Vitals: Temp Pulse Resp BP Pulse Ox 98.1 F 93 16 111/77 95 04/10/18 10:24 04/10/18 10:24 04/10/18 10:24 04/10/18 10:24 04/10/18 10:24 Exam: General: Alert and oriented, not in acute distress. Cardiovascular:Normal S1 & S2, No JVD. Pulse regular. Lungs: clear to auscultation, no wheezes/rales Abdomen:Soft, non-tender, no rigidity. Extremities: LLE area of erythema is decreasing further compared to the initial marking, less warm to touch, no localized areas of fluctuance or collection Neurological:Normal cognition and motor skills. Non-focal - Patient Status Disposition: Home Health Service Condition: Fair Functional capacity at discharge: independent ambulation Overall status at discharge: patient is progressing back to baseline - Discharge Instructions Instructions: Cellulitis (DC), Diabetes Mellitus Type 2 in Adults (DC) Follow Up With: Gloria Pinedo MD [Non-Partnered Physician] - Jhonathan Rae DO [Partnered Physician] - 05/19/18 2:10 pm (Please have your BMP lab work in 1 week after discharge. Thank you) - Diet and Activity Activity: as per physical therapy Diet: diabetic diet
--- NOTE | 2018-04-10 11:57 | Physician Discharge Referral ---
Home Health/Hosp Referral Info Transfer to: Home Health - Diagnosis (1) Cellulitis of left lower extremity Priority: Primary Status: Acute (2) Renal insufficiency Priority: Secondary Status: Resolved (3) Rhabdomyolysis Priority: Secondary Status: Resolved (4) Diabetes Priority: Secondary Status: Chronic (5) History of Hodgkin's lymphoma Priority: Secondary Status: Acute (6) HTN (hypertension) Priority: Secondary Status: Acute (7) Aneurysm Priority: Secondary Status: Acute (8) Hyperkalemia Priority: Secondary Status: Resolved - Respiratory Orders Smoking Cessation: Smoking cessation has been advised. For more information, call the [place] Tobacco Quit Line at 5-980-LFGUNOW. - Services Needed Following services are medically necessary services: Physical Therapy, Occupational Therapy - Transfer Medications Prescriptions: Doxycycline 100 mg PO BID 7 Days #14 capsule Ferrous Sulfate 325 mg PO DAILY@0800 #30 tablet levoFLOXacin [Levaquin] 750 mg PO DAILY 7 Days #7 tablet Home Medications: Aspirin [Lo-Dose Aspirin EC] 81 mg PO DAILY 01/15/17 [History] Atenolol [Tenormin] 50 mg PO DAILY 01/15/17 [History] Atorvastatin Calcium 80 mg PO DAILY 01/15/17 [History] Ezetimibe [Zetia] 10 mg PO DAILY 01/15/17 [History] Gabapentin [Neurontin] 800 mg PO TID 01/15/17 [History] Lisinopril [Zestril] 40 mg PO DAILY 01/15/17 [History] Metformin HCl [Glucophage] 1,000 mg PO BID 01/15/17 [History] Finasteride [Proscar] 5 mg PO DAILY 04/06/18 [History] GlipiZIDE XL (24 HR) [Glucotrol XL] 10 mg PO DAILY 04/06/18 [History] Doxycycline 100 mg PO BID 7 Days #14 capsule 04/10/18 [Rx] Ferrous Sulfate 325 mg PO DAILY@0800 #30 tablet 04/10/18 [Rx] levoFLOXacin [Levaquin] 750 mg PO DAILY 7 Days #7 tablet 04/10/18 [Rx] Allergies/Adverse Reactions: Allergy/AdvReac Type Severity Reaction Status Date / Time acetaminophen [From Percocet] Allergy Rash Verified 04/06/18 13:06 Oxycodone [From Percocet] Allergy Rash Verified 04/06/18 13:06 Penicillins Allergy Rash Verified 04/06/18 13:06 Certification: Further, I certify that my clinical findings support that this patient is homebound (i.e. absences from home require considerable and taxing effort and are for medical reasons or anabaptism services or infrequently or short duration when for other reasons) because: Homebound Reason: Patient requires assistance of a person or device to safely leave home Attestation: My signature below is to certify that this patient is under my care and that I, or nurse practitioner, or a physician's legal document assistant working with me, has a [id number] encounter with this patient.
[2018-04-10] MEDS ORDERED: Aminoglycoside Consult 1 EACH MC ONE (13:43)
== END 2018-04-10 13:44 | disposition home health service (06) | DRG 603 ==
LOC: 3ANU → SUATTDRO 21:05
PROVIDERS: ADMIT Internal Medicine; ATTEND Internal Medicine

== ENCOUNTER 2020-05-26 19:23 | Inpatient (IN) ==
[2020-05-27] MEDS ORDERED: Naloxone 0.4 MG/ML INJ IVP PRN ×2 (00:14→16:11)
[2020-05-27] MEDS ORDERED: Ondansetron 4 MG/2 ML VIAL IVP PRN (00:14)
[2020-05-27] MEDS ORDERED: D5% in Water 1,000 ML IVC PRN (00:37)
[2020-05-27] MEDS ORDERED: Dextrose Gel 15 GM/37.5 ML TUBE PO PRN ×2 (00:37)
[2020-05-27] MEDS ORDERED: *HR* Dextrose 50 % in Water (Vial) 50 ML VIAL IVP PRN (00:37)
[2020-05-27] MEDS ORDERED: *HR* Metoprolol 5 MG/5 ML VIAL IVP ONE (01:26)
[2020-05-27] MEDS: Insulin LISPRO 300 UNITS/3 ML VIAL SUBQ SCH ×7 (01:39→23:07)
[2020-05-27] MEDS: Insulin DETEMIR 100 UNIT/ML X5UNITS SUBQ SCH ×2 (01:40→19:35)
[2020-05-27] MEDS ORDERED: *HR* LORazepam 2 MG/ML VIAL IVP ONE ×2 (02:44→05:11)
[2020-05-27 03:09] LABS: Basophils % 0.3 %; Eosinophils % 0.2 %; Hematocrit 37.6 % (37.5-50.1); Immature Granulocytes % 1.1 % (0-4); Lymphocytes # 1.4 K/mcL (0.6-4.6); Lymphocytes % 10.9 %; Mean Corpuscular HGB Conc 31.9 g/dL (31.6-35.5); Mean Corpuscular Hemoglobin 27.3 pg (28.0-33.3); Mean Corpuscular Volume 85.6 fL (83.0-100.0); Mean Platelet Volume 11.2 fL (9.4-12.4); Monocytes # 1.3 K/mcL (0.0-1.3); Monocytes % 10.2 %; Neutrophils # 10.1 K/mcL (1.6-8.9); Nucleated Red Blood Cells 0.8 /100 WBC (0); Platelet Count 340 K/mcL (140-400); Red Blood Count 4.39 M/mcL (4.19-5.50); Red Cell Distribution Width 14.9 % (11.5-14.5); Segmented Neutrophils % 77.3 %
[2020-05-27] MEDS ORDERED: Perflutren Lipid Microsphere 1.3 ML in 0.9 % Sodium Chloride 8.7 ML IVP PRN (03:13)
[2020-05-27] MEDS ORDERED: Magnesium Sulfate 1 GM/102 ML PIGGYBACK IVPB ONE (03:21)
[2020-05-27 03:28] LABS: Albumin 3.3 g/dL (3.5-5.7); Albumin/Globulin Ratio 1.1 (1.1-2.2); Bilirubin,Total 2.1 mg/dL (0.3-1.0); Calcium 8.6 mg/dL (8.6-10.3); Globulin 3.1 g/dL (2.4-3.5); Potassium 3.7 mEq/L (3.5-5.1); Total Protein 6.4 g/dL (6.4-8.9)
[2020-05-27 03:31] LABS: C-Reactive Protein 28 mg/L (Less than 10); Lactate Dehydrogenase 320 Units/L (140-271)
[2020-05-27 03:48] LABS: Ferritin 56 ng/mL (20-250)
[2020-05-27 04:32] LABS: Hepatitis B Surface Antigen Nonreactive (Nonreactive)
[2020-05-27 05:01] LABS: Hepatitis A Antibody IgM Nonreactive (Nonreactive); Hepatitis B Core IgM Nonreactive (Nonreactive); Hepatitis C Virus Antibody Nonreactive (Nonreactive)
[2020-05-27 05:02] LABS: ABG Base Excess -7 mEq/L (-2 to 3); ABG HCO3 17 mEq/L (21-27); ABG Oxygen Saturation 98 % (95-98); ABG PCO2 29 mmHg (35-45); ABG PH 7.38 pH Units (7.32-7.45); ABG PO2 103 mmHg (85-104); ABG TCO2 18 mEq/L (20-26)
[2020-05-27] MEDS ORDERED: Ipratropium/Albuterol Neb 3 ML ONE (05:03)
[2020-05-27] MEDS ORDERED: Ipratropium/Albuterol Neb 3 ML IH ONE (05:07)
[2020-05-27] MEDS ORDERED: *HR* LORazepam 2 MG/ML VIAL IVP PRN (05:09)
[2020-05-27] MEDS ORDERED: Albumin 25% 25gram/100mL 25 GM/100 ML IV.SOLN IVPB ONE (05:18)
[2020-05-27 06:45] LABS: Bilirubin,Urine Large (Negative); Blood,Urine Large (Negative); Clarity,Urine Turbid (Clear); Color,Urine Red (Yellow); Glucose,Urine (UA) 100 mg/dL (Normal); Ketones,Urine Trace mg/dL (Negative); Leukocyte Esterase,Urine Small (Negative); Nitrite,Urine Negative (Negative); Protein,Urine >=300 mg/dL (Neg-Trace); Specific Gravity,Urine 1.025 (1.010-1.025)
[2020-05-27 06:46] LABS: Hyaline Casts,Urine None Seen per lpf (None Seen); RBC,Urine 50-100 per hpf (0-3); Squamous Epithelial Cell,Urine Moderate per hpf (None-Few); WBC,Urine 50-100 per hpf (0-3)
[2020-05-27 06:47] LABS: Amorphous Sediment,Urine Few per hpf (None-Few); Bacteria,Urine Moderate per hpf (None-Few)
[2020-05-27] MEDS: Acyclovir 750 MG in D5% in Water 250 ML IVPB SCH (07:05)
[2020-05-27] MEDS ORDERED: Azithromycin 250 MG TABLET PO SCH (08:15)
[2020-05-27] MEDS ORDERED: cefTRIAXone 2,000 MG in Water for inj. (sterile) 20 ML IVP SCH (09:00)
[2020-05-27] MEDS ORDERED: Azithromycin 500 MG in 0.9 % Sodium Chloride 250 ML IVPB SCH (10:00)
[2020-05-27 10:24] LABS: Adenovirus Not Detected (Not Detect); Bordetella Pertussis Not Detected (Not Detect); Chlamydophila pneumoniae Not Detected (Not Detect); Coronavirus 229E Not Detected (Not Detect); Coronavirus HKU1 Not Detected (Not Detect); Coronavirus NL63 Not Detected (Not Detect); Coronavirus OC43 Not Detected (Not Detect); Human Metapneumovirus Not Detected (Not Detect); Human Rhinovirus/Enterovirus Not Detected (Not Detect); Influenza A Subtype 2009 H1 Not Detected (Not Detect); Influenza B Not Detected (Not Detect); Mycoplasma pneumoniae Not Detected (Not Detect); Parainfluenza Virus 1 Not Detected (Not Detect); Parainfluenza Virus 2 Not Detected (Not Detect); Parainfluenza Virus 3 Not Detected (Not Detect); Parainfluenza Virus 4 Not Detected (Not Detect); Respiratory Syncytial Virus Not Detected (Not Detect); SARS-CoV-2 Not Detected (Not Detect)
[2020-05-27] MEDS ORDERED: DilTIAZem 50 MG/50 ML IV.SOLN IVC SCH (11:00)
[2020-05-27 11:32] LABS: Complement C3 82 mg/dL (87-200)
[2020-05-27 11:35] LABS: Uric Acid 15.4 mg/dL (2.3-7.6)
[2020-05-27] MEDS ORDERED: Haloperidol Lactate 5 MG/ML VIAL IVP ONE (11:39)
[2020-05-27 11:40] LABS: Troponin I 0.07 ng/mL (< 0.04)
[2020-05-27] MEDS: Dexmedetomidine HCl 400 MCG/100 ML MLS IVC SCH ×2 (11:52→23:05)
[2020-05-27] MEDS: Sodium Bicarbonate 75 MEQ in 0.45 % Sodium Chloride 1,000 ML IVC SCH ×2 (13:00→23:42)
[2020-05-27 13:15] LABS: Estimated Average Glucose 235 mg/dl; Hemoglobin A1C 9.8 %
[2020-05-27] MEDS ORDERED: 0.9 % Sodium Chloride 500 ML IVC ONE (13:51)
[2020-05-27] MEDS ORDERED: Amiodarone Premix 360 MG/200 ML BAG IVC ONE (13:52)
[2020-05-27] MEDS ORDERED: Amiodarone Premix 150 MG/100 ML BAG IVPB ONE (14:00)
[2020-05-27] MEDS ORDERED: Vancomycin 1,750 MG/517.5 ML IV.SOLN IVPB SCH (15:00)
[2020-05-27] MEDS ORDERED: Cefepime HCl 2,000 MG in Water for inj. (sterile) 20 ML IVP SCH ×2 (15:00→16:00)
[2020-05-27] MEDS: *HR* Heparin 5,000 UNIT/ML VIAL SQ SCH ×2 (15:06→23:03)
[2020-05-27] MEDS: Norepinephrine 4 MG/254 ML IV.SOLN IVC SCH ×2 (15:45→21:06)
[2020-05-27] MEDS ORDERED: Acyclovir 750 MG in D5% in Water 250 ML IVPB SCH (16:00)
[2020-05-27] MEDS: MetroNIDAZOLE 500 MG/100 ML 500 MG/100 ML BAG IVPB SCH ×2 (16:26→23:03)
[2020-05-27 16:51] LABS: Potassium,Urine 12.3 mEq/L; Protein/Creatinine Ratio,Urine 3.77 mg/mg (0.00-0.20)
[2020-05-27] MEDS: Amiodarone Premix 360 MG/200 ML BAG IVC SCH (21:05)
[2020-05-27 22:47] LABS: Mixed Venous Blood pCO2 39 mmHg (44-46); Mixed Venous Blood pH 7.34 pH Units (7.34-7.36); Mixed Venous Blood pO2 71 mmHg (35-45)
[2020-05-27 23:02] LABS: Albumin/Globulin Ratio 1.1 (1.1-2.2); Calcium 8.2 mg/dL (8.6-10.3); Globulin 2.7 g/dL (2.4-3.5); Potassium 3.3 mEq/L (3.5-5.1); Total Protein 5.7 g/dL (6.4-8.9)
[2020-05-28] MEDS: Insulin LISPRO 300 UNITS/3 ML VIAL SUBQ SCH ×6 (03:35→23:32)
[2020-05-28 03:44] LABS: Basophils % 0.4 %; Eosinophils % 0.5 %; Hematocrit 35.9 % (37.5-50.1); Hemoglobin 11.4 g/dL (12.9-16.9); Immature Granulocytes % 0.8 % (0-4); Lymphocytes % 7.3 %; Mean Corpuscular HGB Conc 31.8 g/dL (31.6-35.5); Mean Corpuscular Hemoglobin 27.4 pg (28.0-33.3); Mean Corpuscular Volume 86.3 fL (83.0-100.0); Mean Platelet Volume 10.9 fL (9.4-12.4); Monocytes % 9.4 %; Platelet Count 248 K/mcL (140-400); Red Blood Count 4.16 M/mcL (4.19-5.50); Red Cell Distribution Width 15.3 % (11.5-14.5); Segmented Neutrophils % 81.6 %; White Blood Count 16.9 K/mcL (4.3-11.1)
[2020-05-28 03:45] LABS: Basophils # 0.1 K/mcL (0.0-0.2); Eosinophils # 0.1 K/mcL (0.0-0.6); Lymphocytes # 1.2 K/mcL (0.6-4.6); Monocytes # 1.6 K/mcL (0.0-1.3); Neutrophils # 13.8 K/mcL (1.6-8.9); Nucleated Red Blood Cells 0.9 /100 WBC (0)
[2020-05-28 04:05] LABS: Albumin 3.2 g/dL (3.5-5.7); Calcium 8.5 mg/dL (8.6-10.3); Magnesium 1.9 mg/dL (1.6-2.6); Potassium 3.8 mEq/L (3.5-5.1); Uric Acid 15.6 mg/dL (2.3-7.6)
[2020-05-28] MEDS: Norepinephrine 4 MG/254 ML IV.SOLN IVC SCH ×2 (04:19→18:34)
[2020-05-28 04:44] LABS: ABG Base Excess -7 mEq/L (-2 to 3); ABG HCO3 17 mEq/L (21-27); ABG Oxygen Saturation 95 % (95-98); ABG PCO2 27 mmHg (35-45); ABG PO2 73 mmHg (85-104); ABG TCO2 17 mEq/L (20-26)
[2020-05-28] MEDS: *HR* Heparin 5,000 UNIT/ML VIAL SQ SCH ×3 (05:18→21:24)
[2020-05-28] MEDS: Acyclovir 750 MG in D5% in Water 250 ML IVPB SCH (05:59)
[2020-05-28] MEDS: Dexmedetomidine HCl 400 MCG/100 ML MLS IVC SCH ×2 (06:01→20:09)
[2020-05-28] MEDS: MetroNIDAZOLE 500 MG/100 ML 500 MG/100 ML BAG IVPB SCH ×3 (08:46→23:29)
[2020-05-28] MEDS: Amiodarone Premix 360 MG/200 ML BAG IVC SCH ×2 (09:13→20:07)
[2020-05-28] MEDS ORDERED: Albumin 25% 25gram/100mL 25 GM/100 ML IV.SOLN IVPB ONE (09:15)
[2020-05-28 10:04] LABS: ABG Base Excess -6 mEq/L (-2 to 3); ABG HCO3 17 mEq/L (21-27); ABG Oxygen Saturation 97 % (95-98); ABG PCO2 28 mmHg (35-45); ABG PO2 90 mmHg (85-104); ABG TCO2 18 mEq/L (20-26)
[2020-05-28] MEDS: Cefepime HCl 1,000 MG in Water for inj. (sterile) 10 ML IVP SCH ×2 (10:05→21:25)
[2020-05-28] MEDS: Furosemide 40 MG/4 ML VIAL IVP SCH ×2 (11:27→20:06)
[2020-05-28] MEDS: DAPTOmycin 600 MG in 0.9 % Sodium Chloride 100 ML IVPB SCH (11:41)
[2020-05-28 12:19] LABS: Bilirubin,Urine Negative (Negative); Blood,Urine Large (Negative); Clarity,Urine Turbid (Clear); Color,Urine Yellow (Yellow); Glucose,Urine (UA) Normal (Normal); Hyaline Casts,Urine Many per lpf (None Seen); Ketones,Urine Trace mg/dL (Negative); Leukocyte Esterase,Urine Small (Negative); Mucus,Urine Few per lpf (None-Few); Nitrite,Urine Negative (Negative); PH,Urine 5.5 pH Units (5.0-8.0); Protein,Urine 100 mg/dL (Neg-Trace); RBC,Urine 50-100 per hpf (0-3); Renal Epithelial Cells,Urine Few per hpf (None-Few); Specific Gravity,Urine 1.026 (1.010-1.025); Squamous Epithelial Cell,Urine Few per hpf (None-Few); Transitional Epi Cells,Urine Few per hpf (None-Few); Urobilinogen,Urine Normal (Normal); WBC,Urine 50-100 per hpf (0-3)
[2020-05-28 12:25] LABS: Albumin 3.3 g/dL (3.5-5.7); Albumin/Globulin Ratio 1.3 (1.1-2.2); Bilirubin,Direct 0.4 mg/dL (0.0-0.2); Bilirubin,Indirect 0.5 mg/dL (0.0-1.0); Bilirubin,Total 0.9 mg/dL (0.3-1.0); Globulin 2.6 g/dL (2.4-3.5); Total Protein 5.9 g/dL (6.4-8.9)
[2020-05-28 13:55] LABS: HSV Source Genital
[2020-05-28 15:20] LABS: HSV 1 DNA Not Detected (Not Detect); HSV 2 DNA Not Detected (Not Detect)
[2020-05-28] MEDS: Insulin DETEMIR 100 UNIT/ML X5UNITS SUBQ SCH (20:05)
[2020-05-29] MEDS ORDERED: Levalbuterol Neb 0.63 MG/3 ML IH PRN (01:45)
[2020-05-29 04:08] LABS: Basophils % 0.2 %; Hematocrit 36.7 % (37.5-50.1); Hemoglobin 11.5 g/dL (12.9-16.9); Immature Granulocytes % 0.8 % (0-4); Lymphocytes # 0.5 K/mcL (0.6-4.6); Lymphocytes % 2.1 %; Mean Corpuscular HGB Conc 31.3 g/dL (31.6-35.5); Mean Corpuscular Hemoglobin 27.3 pg (28.0-33.3); Mean Platelet Volume 11.4 fL (9.4-12.4); Monocytes % 9.2 %; Neutrophils # 19.4 K/mcL (1.6-8.9); Nucleated Red Blood Cells 0.2 /100 WBC (0); Platelet Count 182 K/mcL (140-400); Red Blood Count 4.22 M/mcL (4.19-5.50); Red Cell Distribution Width 15.5 % (11.5-14.5); Segmented Neutrophils % 87.7 %; White Blood Count 22.1 K/mcL (4.3-11.1)
[2020-05-29 04:16] LABS: Calcium 8.7 mg/dL (8.6-10.3); Potassium 3.2 mEq/L (3.5-5.1)
[2020-05-29] MEDS: Insulin LISPRO 300 UNITS/3 ML VIAL SUBQ SCH ×6 (04:19→22:54)
[2020-05-29] MEDS: Dexmedetomidine HCl 400 MCG/100 ML MLS IVC SCH ×4 (04:49→22:52)
[2020-05-29 04:54] LABS: ABG Base Excess -7 mEq/L (-2 to 3); ABG HCO3 16 mEq/L (21-27); ABG Oxygen Saturation 92 % (95-98); ABG PCO2 24 mmHg (35-45); ABG PH 7.43 pH Units (7.32-7.45); ABG PO2 60 mmHg (85-104); ABG TCO2 17 mEq/L (20-26); Blood Gas Pressure Support 6 cm H2O
[2020-05-29] MEDS: *HR* Heparin 5,000 UNIT/ML VIAL SQ SCH ×3 (05:01→21:29)
[2020-05-29] MEDS: Acyclovir 750 MG in D5% in Water 250 ML IVPB SCH ×2 (06:06→08:03)
[2020-05-29] MEDS: Furosemide 40 MG/4 ML VIAL IVP SCH ×2 (07:50→21:29)
[2020-05-29] MEDS: MetroNIDAZOLE 500 MG/100 ML 500 MG/100 ML BAG IVPB SCH (07:51)
[2020-05-29] MEDS: Amiodarone Premix 360 MG/200 ML BAG IVC SCH ×2 (08:01→20:09)
[2020-05-29] MEDS ORDERED: 0.9 % Sodium Chloride 250 ML IVC PRN (10:17)
[2020-05-29] MEDS: Cefepime HCl 1,000 MG in Water for inj. (sterile) 10 ML IVP SCH ×2 (10:58→21:30)
[2020-05-29] MEDS ORDERED: Albumin 25% 25gram/100mL 25 GM/100 ML IV.SOLN IVPB PRN (12:07)
[2020-05-29] MEDS ORDERED: 0.9 % Sodium Chloride 2,000 ML ONE (12:21)
[2020-05-29 12:43] LABS: Hepatitis B Surface Antibody < 3.10 mIU/mL
[2020-05-29 12:54] LABS: Hepatitis B Surface Antigen Nonreactive (Nonreactive)
[2020-05-29] MEDS: Nystatin SUSP 5 ML UD.LIQ PO SCH ×3 (13:27→21:30)
[2020-05-29] MEDS ORDERED: Heparin 1,000 UNITS/500 mL 500 ML ONE (13:51)
[2020-05-29] MEDS ORDERED: *HR* Heparin 5,000 UNIT/ML VIAL ONE (15:04)
[2020-05-29 15:43] LABS: ANA IgG by ELISA NONE DETECTED (None Detected)
[2020-05-29] MEDS ORDERED: *HR* FentaNYL (PF) 100 MCG/2 ML VIAL IVP ONE (18:39)
[2020-05-29] MEDS: Insulin DETEMIR 100 UNIT/ML X5UNITS SUBQ SCH (21:29)
[2020-05-29] MEDS: Norepinephrine 4 MG/254 ML IV.SOLN IVC SCH (21:32)
[2020-05-30] MEDS: Insulin LISPRO 300 UNITS/3 ML VIAL SUBQ SCH ×5 (04:11→20:33)
[2020-05-30 04:21] LABS: Basophils % 0.1 %; Eosinophils % 0.1 %; Hematocrit 36.8 % (37.5-50.1); Hemoglobin 11.6 g/dL (12.9-16.9); Immature Granulocytes % 0.7 % (0-4); Lymphocytes # 0.7 K/mcL (0.6-4.6); Lymphocytes % 4.1 %; Mean Corpuscular HGB Conc 31.5 g/dL (31.6-35.5); Mean Corpuscular Hemoglobin 27.6 pg (28.0-33.3); Mean Corpuscular Volume 87.4 fL (83.0-100.0); Mean Platelet Volume 12.1 fL (9.4-12.4); Monocytes # 1.7 K/mcL (0.0-1.3); Monocytes % 9.8 %; Nucleated Red Blood Cells 0.5 /100 WBC (0); Platelet Count 141 K/mcL (140-400); Red Blood Count 4.21 M/mcL (4.19-5.50); Red Cell Distribution Width 15.7 % (11.5-14.5); Segmented Neutrophils % 85.2 %; White Blood Count 17.7 K/mcL (4.3-11.1)
[2020-05-30 04:41] LABS: Calcium 8.5 mg/dL (8.6-10.3); Potassium 3.1 mEq/L (3.5-5.1)
[2020-05-30] MEDS: Dexmedetomidine HCl 400 MCG/100 ML MLS IVC SCH ×3 (04:49→21:01)
[2020-05-30] MEDS: *HR* Heparin 5,000 UNIT/ML VIAL SQ SCH (04:50)
[2020-05-30 06:50] LABS: Serine Protease-3 Antibody 1 AU/mL (0-19)
[2020-05-30] MEDS ORDERED: 0.9 % Sodium Chloride 250 ML IVC PRN (06:52)
[2020-05-30] MEDS ORDERED: Albumin 25% 25gram/100mL 25 GM/100 ML IV.SOLN IVPB PRN (06:52)
[2020-05-30] MEDS ORDERED: 0.9 % Sodium Chloride 1,000 ML PRIME SCH (07:00)
[2020-05-30] MEDS: Nystatin SUSP 5 ML UD.LIQ PO SCH ×4 (07:44→20:57)
[2020-05-30] MEDS: Amiodarone Premix 360 MG/200 ML BAG IVC SCH ×2 (07:56→19:24)
[2020-05-30] MEDS: Furosemide 40 MG/4 ML VIAL IVP SCH ×2 (08:02→20:34)
[2020-05-30] MEDS ORDERED: *HR* Heparin 5,000 UNIT/ML VIAL IVP PRN ×2 (10:45)
[2020-05-30] MEDS ORDERED: *HR* Heparin 5,000 UNIT/ML VIAL IVP ONE (10:45)
[2020-05-30] MEDS ORDERED: Heparin 25,000UNIT/250ML 1/2NS 25,000 UNIT/250 ML IV.SOLN IVC SCH (10:45)
[2020-05-30] MEDS: Cefepime HCl 1,000 MG in Water for inj. (sterile) 10 ML IVP SCH ×2 (11:08→20:57)
[2020-05-30] MEDS: DAPTOmycin 600 MG in 0.9 % Sodium Chloride 100 ML IVPB SCH (12:22)
[2020-05-30] MEDS: Norepinephrine 4 MG/254 ML IV.SOLN IVC SCH (14:58)
[2020-05-30 18:44] LABS: Hematocrit 38.2 % (37.5-50.1); Hemoglobin 12.2 g/dL (12.9-16.9); Mean Corpuscular HGB Conc 31.9 g/dL (31.6-35.5); Mean Corpuscular Hemoglobin 27.5 pg (28.0-33.3); Mean Corpuscular Volume 86.2 fL (83.0-100.0); Mean Platelet Volume 12.4 fL (9.4-12.4); Platelet Count 120 K/mcL (140-400); Red Blood Count 4.43 M/mcL (4.19-5.50); Red Cell Distribution Width 15.7 % (11.5-14.5)
[2020-05-30 18:46] LABS: INR 2.2; Prothrombin Time 25.4 Seconds (9.4-12.1)
[2020-05-30 19:04] LABS: Activated Partial Thrombo Time > 360.0 Seconds (26.0-36.0); Heparin anti-factor XA UFH 1.64 IU/mL (0.30-0.70)
[2020-05-30] MEDS: Insulin DETEMIR 100 UNIT/ML X5UNITS SUBQ SCH (20:57)
[2020-05-30 23:07] LABS: Alpha 2 Globulin (PEP) 0.62 g/dL (0.48-1.05); Beta Globulin (PEP) 0.79 g/dL (0.48-1.10)
[2020-05-31] MEDS: Heparin 25,000UNIT/250ML 1/2NS 25,000 UNIT/250 ML IV.SOLN IVC SCH ×2 (00:56→02:06)
[2020-05-31] MEDS: Insulin LISPRO 300 UNITS/3 ML VIAL SUBQ SCH ×6 (00:57→19:51)
[2020-05-31] MEDS: Dexmedetomidine HCl 400 MCG/100 ML MLS IVC SCH ×3 (02:07→21:45)
[2020-05-31 03:14] LABS: Hematocrit 37.2 % (37.5-50.1); Hemoglobin 11.8 g/dL (12.9-16.9); Mean Corpuscular HGB Conc 31.7 g/dL (31.6-35.5); Mean Corpuscular Hemoglobin 27.4 pg (28.0-33.3); Mean Corpuscular Volume 86.5 fL (83.0-100.0); Mean Platelet Volume 12.5 fL (9.4-12.4); Platelet Count 133 K/mcL (140-400); Red Cell Distribution Width 15.9 % (11.5-14.5); White Blood Count 17.9 K/mcL (4.3-11.1)
[2020-05-31 03:27] LABS: Albumin 2.8 g/dL (3.5-5.7); Albumin/Globulin Ratio 1.1 (1.1-2.2); Bilirubin,Direct 0.4 mg/dL (0.0-0.2); Bilirubin,Indirect 0.6 mg/dL (0.0-1.0); Calcium 8.5 mg/dL (8.6-10.3); Globulin 2.6 g/dL (2.4-3.5); Potassium 3.6 mEq/L (3.5-5.1); Total Protein 5.4 g/dL (6.4-8.9)
[2020-05-31] MEDS: Amiodarone Premix 360 MG/200 ML BAG IVC SCH ×2 (06:25→18:45)
[2020-05-31 06:50] LABS: IFE Reflexed NOT DONE
[2020-05-31] MEDS ORDERED: 0.9 % Sodium Chloride 250 ML IVC PRN (07:18)
[2020-05-31] MEDS: Nystatin SUSP 5 ML UD.LIQ PO SCH ×4 (07:57→19:50)
[2020-05-31] MEDS: Furosemide 40 MG/4 ML VIAL IVP SCH (10:02)
[2020-05-31] MEDS: Cefepime HCl 1,000 MG in Water for inj. (sterile) 10 ML IVP SCH ×2 (11:27→19:49)
[2020-05-31] MEDS: Norepinephrine 4 MG/254 ML IV.SOLN IVC SCH (17:48)
[2020-05-31] MEDS: Insulin DETEMIR 100 UNIT/ML X5UNITS SUBQ SCH (19:53)
[2020-06-01] MEDS: Insulin LISPRO 300 UNITS/3 ML VIAL SUBQ SCH ×6 (00:30→20:14)
[2020-06-01 04:51] LABS: Hemoglobin 11.9 g/dL (12.9-16.9); Mean Corpuscular HGB Conc 31.3 g/dL (31.6-35.5); Mean Corpuscular Hemoglobin 26.9 pg (28.0-33.3); Mean Platelet Volume 12.2 fL (9.4-12.4); Platelet Count 115 K/mcL (140-400); Red Blood Count 4.42 M/mcL (4.19-5.50); Red Cell Distribution Width 15.9 % (11.5-14.5)
[2020-06-01 05:13] LABS: Calcium 8.4 mg/dL (8.6-10.3); Potassium 3.4 mEq/L (3.5-5.1)
[2020-06-01] MEDS: Amiodarone Premix 360 MG/200 ML BAG IVC SCH ×2 (06:45→18:42)
[2020-06-01] MEDS: Dexmedetomidine HCl 400 MCG/100 ML MLS IVC SCH (06:54)
[2020-06-01] MEDS: Nystatin SUSP 5 ML UD.LIQ PO SCH ×4 (08:47→20:13)
[2020-06-01 10:11] LABS: Thyroid Stimulating Hormone 5.795 mcIU/mL (0.340-5.600)
[2020-06-01] MEDS: DAPTOmycin 600 MG in 0.9 % Sodium Chloride 100 ML IVPB SCH (11:17)
[2020-06-01] MEDS ORDERED: *HR* Amiodarone 200 MG TABLET PO SCH (17:30)
[2020-06-01] MEDS ORDERED: *HR* Metoprolol 5 MG/5 ML VIAL IVP ONE ×2 (17:47→17:55)
[2020-06-01 19:02] LABS: Hematocrit 40.1 % (37.5-50.1); Hemoglobin 12.8 g/dL (12.9-16.9)
[2020-06-01 19:12] LABS: Potassium 2.7 mEq/L (3.5-5.1)
[2020-06-01] MEDS: Cefepime HCl 1,000 MG in Water for inj. (sterile) 10 ML IVP SCH (20:12)
[2020-06-01] MEDS: Insulin DETEMIR 100 UNIT/ML X5UNITS SUBQ SCH (20:14)
[2020-06-01] MEDS: Pantoprazole 40 MG in 0.9 % Sodium Chloride Mini Bag 100 ML IVC SCH (20:27)
[2020-06-01] MEDS ORDERED: Potassium Phosphate 44 MEQ in 0.9 % Sodium Chloride 250 ML IVPB PRN (20:43)
[2020-06-01] MEDS ORDERED: Calcium Gluconate 1gm/50mL 1 GM/50 ML BAG IVPB PRN (20:43)
[2020-06-01 20:55] LABS: VBG Ionized Calcium 1.07 mmol/L (1.15-1.35)
[2020-06-01] MEDS: Calcium Gluconate 1gm/50mL 1 GM/50 ML BAG IVPB SCH (22:26)
[2020-06-02] MEDS: Insulin LISPRO 300 UNITS/3 ML VIAL SUBQ SCH ×7 (00:37→23:12)
[2020-06-02] MEDS: Calcium Gluconate 1gm/50mL 1 GM/50 ML BAG IVPB SCH (01:01)
[2020-06-02] MEDS: Pantoprazole 40 MG in 0.9 % Sodium Chloride Mini Bag 100 ML IVC SCH ×6 (01:02→19:45)
[2020-06-02 04:46] LABS: Hemoglobin 12.1 g/dL (12.9-16.9); Mean Corpuscular Volume 87.1 fL (83.0-100.0); Mean Platelet Volume 12.2 fL (9.4-12.4); Platelet Count 129 K/mcL (140-400); Red Blood Count 4.48 M/mcL (4.19-5.50); Red Cell Distribution Width 16.1 % (11.5-14.5)
[2020-06-02 04:47] LABS: White Blood Count 23.9 K/mcL (4.3-11.1)
[2020-06-02 04:59] LABS: Calcium 9.1 mg/dL (8.6-10.3); Potassium 4.2 mEq/L (3.5-5.1)
[2020-06-02] MEDS: Amiodarone Premix 360 MG/200 ML BAG IVC SCH ×2 (06:03→18:02)
[2020-06-02] MEDS ORDERED: Albumin 25% 25gram/100mL 25 GM/100 ML IV.SOLN IVPB PRN (07:30)
[2020-06-02] MEDS ORDERED: *HR* Heparin 10,000 UNIT/10 ML VIAL IV PRN (07:30)
[2020-06-02] MEDS ORDERED: 0.9 % Sodium Chloride 250 ML IVC PRN (07:30)
[2020-06-02] MEDS: Nystatin SUSP 5 ML UD.LIQ PO SCH ×4 (07:51→19:45)
[2020-06-02 09:44] LABS: Hematocrit 39.1 % (37.5-50.1); Hemoglobin 12.2 g/dL (12.9-16.9)
[2020-06-02 09:57] LABS: Basophils % 0.1 %; Lymphocytes # 0.3 K/mcL (0.6-4.6); Lymphocytes % 1.5 %; Mean Corpuscular Hemoglobin 27.6 pg (28.0-33.3); Mean Corpuscular Volume 86.2 fL (83.0-100.0); Mean Platelet Volume 12.3 fL (9.4-12.4); Monocytes # 2.3 K/mcL (0.0-1.3); Monocytes % 10.4 %; Neutrophils # 19.4 K/mcL (1.6-8.9); Nucleated Red Blood Cells 2.1 /100 WBC (0); Platelet Count 110 K/mcL (140-400); Red Cell Distribution Width 16.1 % (11.5-14.5); White Blood Count 22.3 K/mcL (4.3-11.1)
[2020-06-02] MEDS: Insulin DETEMIR 100 UNIT/ML X5UNITS SUBQ SCH (19:44)
[2020-06-02] MEDS: Cefepime HCl 1,000 MG in Water for inj. (sterile) 10 ML IVP SCH (19:45)
[2020-06-02] MEDS ORDERED: Bisacodyl 10 MG RECTAL SUPPOSITORY RC ONE (21:00)
[2020-06-02] MEDS: *HR* Heparin 5,000 UNIT/ML VIAL SQ SCH (23:06)
[2020-06-03] MEDS: Pantoprazole 40 MG in 0.9 % Sodium Chloride Mini Bag 100 ML IVC SCH ×4 (01:00→15:31)
[2020-06-03] MEDS: Dexmedetomidine HCl 400 MCG/100 ML MLS IVC SCH ×2 (03:40→09:36)
[2020-06-03] MEDS: Insulin LISPRO 300 UNITS/3 ML VIAL SUBQ SCH ×5 (03:40→22:16)
[2020-06-03 04:17] LABS: Basophils % 0.2 %; Hematocrit 36.8 % (37.5-50.1); Hemoglobin 11.5 g/dL (12.9-16.9); Immature Granulocytes % 0.7 % (0-4); Lymphocytes # 0.6 K/mcL (0.6-4.6); Lymphocytes % 2.4 %; Mean Corpuscular HGB Conc 31.3 g/dL (31.6-35.5); Mean Corpuscular Hemoglobin 27.6 pg (28.0-33.3); Mean Corpuscular Volume 88.2 fL (83.0-100.0); Mean Platelet Volume 12.5 fL (9.4-12.4); Monocytes # 3.2 K/mcL (0.0-1.3); Monocytes % 13.7 %; Neutrophils # 19.2 K/mcL (1.6-8.9); Nucleated Red Blood Cells 3.1 /100 WBC (0); Platelet Count 115 K/mcL (140-400); Red Blood Count 4.17 M/mcL (4.19-5.50); Red Cell Distribution Width 16.2 % (11.5-14.5); White Blood Count 23.2 K/mcL (4.3-11.1)
[2020-06-03 04:40] LABS: Calcium 8.5 mg/dL (8.6-10.3); Phosphorous 6.2 mg/dL (2.7-4.5); Potassium 3.9 mEq/L (3.5-5.1)
[2020-06-03] MEDS: *HR* Heparin 5,000 UNIT/ML VIAL SQ SCH ×3 (05:04→23:14)
[2020-06-03] MEDS: Amiodarone Premix 360 MG/200 ML BAG IVC SCH ×2 (06:17→15:27)
[2020-06-03] MEDS: Nystatin SUSP 5 ML UD.LIQ PO SCH ×3 (08:04→09:36)
[2020-06-03] MEDS: Norepinephrine 4 MG/254 ML IV.SOLN IVC SCH (08:30)
[2020-06-03] MEDS: DAPTOmycin 600 MG in 0.9 % Sodium Chloride 100 ML IVPB SCH (10:19)
[2020-06-03 15:17] LABS: Calcium 8.8 mg/dL (8.6-10.3); Potassium 3.6 mEq/L (3.5-5.1)
[2020-06-03] MEDS ORDERED: Ondansetron 4 MG/2 ML VIAL IVP PRN (18:08)
[2020-06-03] MEDS ORDERED: Levalbuterol Neb 0.63 MG/3 ML IH PRN (18:08)
[2020-06-03] MEDS ORDERED: Dextrose Gel 15 GM/37.5 ML TUBE PO PRN ×2 (18:08)
[2020-06-03] MEDS ORDERED: *HR* Dextrose 50 % in Water (Vial) 50 ML VIAL IVP PRN (18:08)
[2020-06-03] MEDS ORDERED: Naloxone 0.4 MG/ML INJ IVP PRN (18:08)
[2020-06-03] MEDS: Cefepime HCl 1,000 MG in Water for inj. (sterile) 10 ML IVP SCH (23:13)
[2020-06-04] MEDS: Insulin LISPRO 300 UNITS/3 ML VIAL SUBQ SCH ×6 (00:14→21:29)
[2020-06-04] MEDS: Amiodarone Premix 360 MG/200 ML BAG IVC SCH ×2 (03:35→16:42)
[2020-06-04] MEDS: *HR* Heparin 5,000 UNIT/ML VIAL SQ SCH ×3 (05:41→21:30)
[2020-06-04 06:14] LABS: Basophils % 0.1 %; Eosinophils # 0.1 K/mcL (0.0-0.6); Eosinophils % 0.3 %; Hematocrit 37.5 % (37.5-50.1); Hemoglobin 11.4 g/dL (12.9-16.9); Immature Granulocytes % 0.8 % (0-4); Lymphocytes # 0.7 K/mcL (0.6-4.6); Lymphocytes % 3.1 %; Mean Corpuscular HGB Conc 30.4 g/dL (31.6-35.5); Mean Corpuscular Hemoglobin 26.6 pg (28.0-33.3); Mean Corpuscular Volume 87.4 fL (83.0-100.0); Mean Platelet Volume 11.6 fL (9.4-12.4); Monocytes # 2.4 K/mcL (0.0-1.3); Monocytes % 11.2 %; Neutrophils # 17.9 K/mcL (1.6-8.9); Nucleated Red Blood Cells 2.2 /100 WBC (0); Platelet Count 122 K/mcL (140-400); Red Blood Count 4.29 M/mcL (4.19-5.50); Red Cell Distribution Width 16.4 % (11.5-14.5); Segmented Neutrophils % 84.5 %; White Blood Count 21.1 K/mcL (4.3-11.1)
[2020-06-04 06:35] LABS: Calcium 8.9 mg/dL (8.6-10.3); Potassium 3.7 mEq/L (3.5-5.1)
[2020-06-04] MEDS ORDERED: 0.9 % Sodium Chloride 2,000 ML ONE (06:39)
[2020-06-04] MEDS ORDERED: *HR* Heparin 10,000 UNIT/10 ML VIAL IV PRN (07:29)
[2020-06-04] MEDS ORDERED: 0.9 % Sodium Chloride 250 ML IVC PRN (07:29)
[2020-06-04] MEDS ORDERED: *HR* Amiodarone 200 MG TABLET PO SCH (09:00)
[2020-06-04] MEDS: Cefepime HCl 1,000 MG in Water for inj. (sterile) 10 ML IVP SCH (21:29)
[2020-06-05] MEDS: *HR* Heparin 5,000 UNIT/ML VIAL SQ SCH ×3 (06:26→20:52)
[2020-06-05] MEDS: Insulin LISPRO 300 UNITS/3 ML VIAL SUBQ SCH ×6 (06:34→20:51)
[2020-06-05 07:18] LABS: Hematocrit 36.7 % (37.5-50.1); Hemoglobin 11.3 g/dL (12.9-16.9); Mean Corpuscular HGB Conc 30.8 g/dL (31.6-35.5); Mean Corpuscular Hemoglobin 26.7 pg (28.0-33.3); Mean Corpuscular Volume 86.8 fL (83.0-100.0); Mean Platelet Volume 12.1 fL (9.4-12.4); Platelet Count 128 K/mcL (140-400); Red Blood Count 4.23 M/mcL (4.19-5.50); Red Cell Distribution Width 16.5 % (11.5-14.5); White Blood Count 15.9 K/mcL (4.3-11.1)
[2020-06-05 07:38] LABS: Calcium 8.3 mg/dL (8.6-10.3); Potassium 3.5 mEq/L (3.5-5.1)
[2020-06-05] MEDS ORDERED: DAPTOmycin 600 MG in 0.9 % Sodium Chloride 100 ML IVPB SCH (11:00)
[2020-06-05] MEDS ORDERED: *HR* Amiodarone 200 MG TABLET PO SCH (11:15)
[2020-06-05] MEDS ORDERED: Perflutren Lipid Microsphere 1.3 ML in 0.9 % Sodium Chloride 8.7 ML IVP PRN (14:33)
[2020-06-05] MEDS: *HR* Amiodarone 200 MG TABLET PO SCH (20:52)
[2020-06-06] MEDS: Insulin LISPRO 300 UNITS/3 ML VIAL SUBQ SCH ×6 (00:07→21:03)
[2020-06-06 01:42] LABS: Hematocrit 37.5 % (37.5-50.1); Hemoglobin 11.7 g/dL (12.9-16.9); Mean Corpuscular HGB Conc 31.2 g/dL (31.6-35.5); Mean Corpuscular Hemoglobin 26.8 pg (28.0-33.3); Mean Corpuscular Volume 85.8 fL (83.0-100.0); Mean Platelet Volume 12.3 fL (9.4-12.4); Platelet Count 152 K/mcL (140-400); Red Blood Count 4.37 M/mcL (4.19-5.50); Red Cell Distribution Width 16.3 % (11.5-14.5); White Blood Count 13.4 K/mcL (4.3-11.1)
[2020-06-06 01:59] LABS: Alanine Aminotransferase 18 Units/L (7-52); Aspartate Amino Transferase 17 Units/L (13-39)
[2020-06-06 02:00] LABS: Calcium 8.5 mg/dL (8.6-10.3); Potassium 3.2 mEq/L (3.5-5.1)
[2020-06-06] MEDS: *HR* Heparin 5,000 UNIT/ML VIAL SQ SCH ×3 (06:01→21:08)
[2020-06-06] MEDS ORDERED: 0.9 % Sodium Chloride 2,000 ML ONE (06:47)
[2020-06-06] MEDS ORDERED: *HR* Heparin 10,000 UNIT/10 ML VIAL IV PRN ×2 (08:08)
[2020-06-06] MEDS ORDERED: 0.9 % Sodium Chloride 250 ML IVC PRN (08:08)
[2020-06-06] MEDS: *HR* Amiodarone 200 MG TABLET PO SCH ×2 (08:14→21:08)
[2020-06-06] MEDS ORDERED: 0.9 % Sodium Chloride 1,000 ML PRIME SCH (08:15)
[2020-06-06] MEDS: Aspirin 81 MG TAB.CHEW PO SCH (08:17)
[2020-06-06 08:29] LABS: INR 1.2; Prothrombin Time 14.3 Seconds (9.4-12.1)
[2020-06-06] MEDS ORDERED: Heparin 1,000 UNITS/500 mL 500 ML ONE (13:05)
[2020-06-06] MEDS ORDERED: Clindamycin 600 MG/50 ML 600 MG/50 ML IV.SOLN IVPB ONE (13:26)
[2020-06-06] MEDS ORDERED: *HR* Heparin 5,000 UNIT/ML VIAL ONE (13:30)
[2020-06-06] MEDS: Metoprolol XL (24 HR) Succ 25 MG TAB.ER.24H PO SCH ×2 (14:23→21:09)
[2020-06-07] MEDS: Insulin LISPRO 300 UNITS/3 ML VIAL SUBQ SCH ×7 (02:51→19:37)
[2020-06-07 04:56] LABS: Hematocrit 34.7 % (37.5-50.1); Hemoglobin 10.8 g/dL (12.9-16.9); Mean Corpuscular HGB Conc 31.1 g/dL (31.6-35.5); Mean Corpuscular Volume 86.8 fL (83.0-100.0); Platelet Count 132 K/mcL (140-400); Red Cell Distribution Width 16.6 % (11.5-14.5); White Blood Count 11.3 K/mcL (4.3-11.1)
[2020-06-07 04:57] LABS: Basophils % 0.3 %; Eosinophils # 0.2 K/mcL (0.0-0.6); Eosinophils % 1.7 %; Hematocrit 35.3 % (37.5-50.1); Hemoglobin 10.7 g/dL (12.9-16.9); Immature Granulocytes % 1.2 % (0-4); Lymphocytes % 8.5 %; Mean Corpuscular HGB Conc 30.3 g/dL (31.6-35.5); Mean Corpuscular Hemoglobin 26.1 pg (28.0-33.3); Mean Corpuscular Volume 86.1 fL (83.0-100.0); Monocytes # 1.8 K/mcL (0.0-1.3); Monocytes % 15.5 %; Neutrophils # 8.4 K/mcL (1.6-8.9); Nucleated Red Blood Cells 0.4 /100 WBC (0); Platelet Count 149 K/mcL (140-400); Red Cell Distribution Width 16.4 % (11.5-14.5); Segmented Neutrophils % 72.8 %; White Blood Count 11.6 K/mcL (4.3-11.1)
[2020-06-07 05:18] LABS: Potassium 3.2 mEq/L (3.5-5.1)
[2020-06-07 05:19] LABS: Calcium 8.4 mg/dL (8.6-10.3); Phosphorous 5.3 mg/dL (2.7-4.5)
[2020-06-07] MEDS: *HR* Heparin 5,000 UNIT/ML VIAL SQ SCH ×3 (06:23→21:24)
[2020-06-07 08:17] LABS: Adenovirus F 40/41 PCR Not detected (Not detect); Astrovirus PCR Not detected (Not detect); C.difficile Toxin A/B Gene PCR Not detected (Not detect); Campylobacter by PCR DETECTED (Not detect); Cryptosporidium by PCR Not detected (Not detect); Cyclospora cayetanensis PCR Not detected (Not detect); E. coli O157 by PCR Not detected (Not detect); Entamoeba histolytica PCR Not detected (Not detect); Enteroaggregative E.coli(EAEC) Not detected (Not detect); Enteropathogenic E.coli(EPEC) Not detected (Not detect); Enterotoxigenic E.coli (ETEC) Not detected (Not detect); Giardia lamblia PCR Not detected (Not detect); Norovirus GI/GII PCR Not detected (Not detect); Plesiomonas shigelloides PCR Not detected (Not detect); Rotavirus A PCR Not detected (Not detect); Salmonella PCR Not detected (Not detect); Sapovirus PCR Not detected (Not detect); Shig/EnteroinvasiveE coli EIEC Not detected (Not detect); Shigalike tox-prod E coli STEC Not detected (Not detect); Vibrio PCR Not detected (Not detect); Vibrio cholerae PCR Not detected (Not detect); Yersinia enterocolitica PCR Not detected (Not detect)
[2020-06-07] MEDS: *HR* Amiodarone 200 MG TABLET PO SCH ×2 (08:42→21:25)
[2020-06-07] MEDS: Metoprolol XL (24 HR) Succ 25 MG TAB.ER.24H PO SCH ×2 (08:42→21:25)
[2020-06-07] MEDS: Aspirin 81 MG TAB.CHEW PO SCH (08:43)
[2020-06-07] MEDS ORDERED: Heparin 1,000 UNITS/500 mL 500 ML ONE (13:46)
[2020-06-07] MEDS ORDERED: 0.9 % Sodium Chloride 250 ML ONE (14:09)
[2020-06-07] MEDS ORDERED: Clindamycin 600 MG/50 ML 600 MG/50 ML IV.SOLN IVPB ONE (14:16)
[2020-06-07] MEDS ORDERED: *HR* Heparin 5,000 UNIT/ML VIAL ONE (14:23)
[2020-06-08 05:14] LABS: Basophils % 0.2 %; Eosinophils # 0.3 K/mcL (0.0-0.6); Hematocrit 34.3 % (37.5-50.1); Hemoglobin 10.4 g/dL (12.9-16.9); Lymphocytes # 1.1 K/mcL (0.6-4.6); Lymphocytes % 8.9 %; Mean Corpuscular HGB Conc 30.3 g/dL (31.6-35.5); Mean Corpuscular Hemoglobin 26.1 pg (28.0-33.3); Mean Platelet Volume 11.7 fL (9.4-12.4); Monocytes # 1.9 K/mcL (0.0-1.3); Neutrophils # 9.3 K/mcL (1.6-8.9); Nucleated Red Blood Cells 0.2 /100 WBC (0); Platelet Count 164 K/mcL (140-400); Red Blood Count 3.99 M/mcL (4.19-5.50); Red Cell Distribution Width 16.3 % (11.5-14.5); Segmented Neutrophils % 72.9 %; White Blood Count 12.7 K/mcL (4.3-11.1)
[2020-06-08 05:34] LABS: Calcium 8.1 mg/dL (8.6-10.3); Potassium 3.4 mEq/L (3.5-5.1)
[2020-06-08] MEDS: *HR* Heparin 5,000 UNIT/ML VIAL SQ SCH ×3 (05:39→20:33)
[2020-06-08] MEDS: Insulin LISPRO 300 UNITS/3 ML VIAL SUBQ SCH ×3 (07:58→16:47)
[2020-06-08] MEDS ORDERED: *HR* Heparin 10,000 UNIT/10 ML VIAL IV PRN ×2 (07:58)
[2020-06-08] MEDS: Metoprolol XL (24 HR) Succ 25 MG TAB.ER.24H PO SCH ×2 (07:58→20:33)
[2020-06-08] MEDS ORDERED: 0.9 % Sodium Chloride 250 ML IVC PRN (07:58)
[2020-06-08] MEDS: Aspirin 81 MG TAB.CHEW PO SCH (07:59)
[2020-06-08] MEDS: *HR* Amiodarone 200 MG TABLET PO SCH ×2 (07:59→20:33)
[2020-06-09 01:36] LABS: Basophils % 0.2 %; Eosinophils # 0.3 K/mcL (0.0-0.6); Eosinophils % 1.9 %; Hematocrit 37.5 % (37.5-50.1); Hemoglobin 11.4 g/dL (12.9-16.9); Lymphocytes # 1.2 K/mcL (0.6-4.6); Lymphocytes % 8.7 %; Mean Corpuscular HGB Conc 30.4 g/dL (31.6-35.5); Mean Corpuscular Hemoglobin 26.3 pg (28.0-33.3); Mean Corpuscular Volume 86.4 fL (83.0-100.0); Mean Platelet Volume 12.6 fL (9.4-12.4); Monocytes # 2.2 K/mcL (0.0-1.3); Monocytes % 15.6 %; Neutrophils # 10.3 K/mcL (1.6-8.9); Nucleated Red Blood Cells 0.1 /100 WBC (0); Platelet Count 167 K/mcL (140-400); Red Blood Count 4.34 M/mcL (4.19-5.50); Red Cell Distribution Width 16.4 % (11.5-14.5); Segmented Neutrophils % 72.6 %; White Blood Count 14.2 K/mcL (4.3-11.1)
[2020-06-09 01:56] LABS: Calcium 8.6 mg/dL (8.6-10.3); Potassium 3.7 mEq/L (3.5-5.1)
[2020-06-09] MEDS: Insulin LISPRO 300 UNITS/3 ML VIAL SUBQ SCH ×5 (04:29→20:16)
[2020-06-09] MEDS: *HR* Heparin 5,000 UNIT/ML VIAL SQ SCH ×3 (05:20→23:32)
[2020-06-09] MEDS: Aspirin 81 MG TAB.CHEW PO SCH (09:01)
[2020-06-09] MEDS: Metoprolol XL (24 HR) Succ 25 MG TAB.ER.24H PO SCH ×2 (09:01→20:17)
[2020-06-09] MEDS: *HR* Amiodarone 200 MG TABLET PO SCH ×2 (09:01→20:15)
[2020-06-10 01:39] LABS: Basophils % 0.2 %; Eosinophils # 0.4 K/mcL (0.0-0.6); Eosinophils % 3.1 %; Hematocrit 34.2 % (37.5-50.1); Hemoglobin 10.5 g/dL (12.9-16.9); Lymphocytes # 1.3 K/mcL (0.6-4.6); Lymphocytes % 10.6 %; Mean Corpuscular HGB Conc 30.7 g/dL (31.6-35.5); Mean Corpuscular Hemoglobin 27.1 pg (28.0-33.3); Mean Corpuscular Volume 88.1 fL (83.0-100.0); Monocytes # 2.1 K/mcL (0.0-1.3); Monocytes % 16.7 %; Neutrophils # 8.4 K/mcL (1.6-8.9); Platelet Count 171 K/mcL (140-400); Red Blood Count 3.88 M/mcL (4.19-5.50); Red Cell Distribution Width 16.6 % (11.5-14.5); Segmented Neutrophils % 68.4 %; White Blood Count 12.3 K/mcL (4.3-11.1)
[2020-06-10 01:54] LABS: Calcium 8.4 mg/dL (8.6-10.3); Potassium 3.4 mEq/L (3.5-5.1)
[2020-06-10] MEDS: *HR* Heparin 5,000 UNIT/ML VIAL SQ SCH ×3 (06:10→23:28)
[2020-06-10] MEDS: Insulin LISPRO 300 UNITS/3 ML VIAL SUBQ SCH ×4 (07:46→19:53)
[2020-06-10] MEDS: Metoprolol XL (24 HR) Succ 25 MG TAB.ER.24H PO SCH ×2 (07:46→19:54)
[2020-06-10] MEDS: *HR* Amiodarone 200 MG TABLET PO SCH (07:46)
[2020-06-10] MEDS: Aspirin 81 MG TAB.CHEW PO SCH (07:47)
[2020-06-10] MEDS ORDERED: *HR* Amiodarone 200 MG TABLET PO SCH (09:00)
[2020-06-11] MEDS: *HR* Heparin 5,000 UNIT/ML VIAL SQ SCH (06:05)
[2020-06-11 06:14] LABS: Basophils % 0.3 %; Eosinophils # 0.4 K/mcL (0.0-0.6); Eosinophils % 2.9 %; Immature Granulocytes % 1.1 % (0-4); Lymphocytes # 1.5 K/mcL (0.6-4.6); Lymphocytes % 12.7 %; Mean Corpuscular HGB Conc 30.3 g/dL (31.6-35.5); Mean Corpuscular Hemoglobin 26.7 pg (28.0-33.3); Mean Corpuscular Volume 88.2 fL (83.0-100.0); Mean Platelet Volume 12.1 fL (9.4-12.4); Monocytes # 1.8 K/mcL (0.0-1.3); Monocytes % 14.9 %; Neutrophils # 8.2 K/mcL (1.6-8.9); Platelet Count 201 K/mcL (140-400); Red Blood Count 3.74 M/mcL (4.19-5.50); Red Cell Distribution Width 16.5 % (11.5-14.5); Segmented Neutrophils % 68.1 %
[2020-06-11 06:36] LABS: Calcium 8.6 mg/dL (8.6-10.3); Potassium 3.3 mEq/L (3.5-5.1)
[2020-06-11] MEDS ORDERED: *HR* Heparin 10,000 UNIT/10 ML VIAL IV PRN (07:30)
[2020-06-11] MEDS ORDERED: 0.9 % Sodium Chloride 250 ML IVC PRN (07:30)
[2020-06-11] MEDS: Aspirin 81 MG TAB.CHEW PO SCH (09:52)
[2020-06-11] MEDS: *HR* Amiodarone 200 MG TABLET PO SCH (09:52)
[2020-06-11] MEDS: Insulin LISPRO 300 UNITS/3 ML VIAL SUBQ SCH ×4 (09:53→20:18)
[2020-06-11] MEDS: Metoprolol XL (24 HR) Succ 25 MG TAB.ER.24H PO SCH ×2 (09:57→20:18)
[2020-06-11] MEDS ORDERED: Heparin 1,000 UNITS/500 mL 500 ML ONE (11:53)
[2020-06-11] MEDS ORDERED: 0.9 % Sodium Chloride 2,000 ML ONE (11:53)
[2020-06-11] MEDS ORDERED: *HR* Heparin 10,000 UNIT/10 ML VIAL ONE (11:54)
[2020-06-11] MEDS ORDERED: Nitroglycerin 1,000 MCG/10 ML VIAL IV ONE (11:54)
[2020-06-11] MEDS ORDERED: ISOVUE-370 200 ML INFUS..BTL ONE (11:54)
[2020-06-11] MEDS ORDERED: *HR* Midazolam HCl 2 MG/2 ML VIAL ONE (12:32)
[2020-06-11] MEDS ORDERED: *HR* FentaNYL (PF) 100 MCG/2 ML VIAL ONE (12:32)
[2020-06-11] MEDS: Apixaban 5 MG TABLET PO SCH (20:17)
[2020-06-12 01:51] LABS: Basophils # 0.1 K/mcL (0.0-0.2); Basophils % 0.4 %; Eosinophils # 0.2 K/mcL (0.0-0.6); Eosinophils % 1.3 %; Hematocrit 36.7 % (37.5-50.1); Immature Granulocytes % 1.1 % (0-4); Lymphocytes # 1.4 K/mcL (0.6-4.6); Mean Corpuscular Hemoglobin 26.3 pg (28.0-33.3); Mean Corpuscular Volume 87.8 fL (83.0-100.0); Mean Platelet Volume 12.2 fL (9.4-12.4); Monocytes % 14.2 %; Neutrophils # 10.4 K/mcL (1.6-8.9); Platelet Count 223 K/mcL (140-400); Red Blood Count 4.18 M/mcL (4.19-5.50); Red Cell Distribution Width 16.3 % (11.5-14.5); White Blood Count 14.2 K/mcL (4.3-11.1)
[2020-06-12 02:10] LABS: Calcium 8.5 mg/dL (8.6-10.3); Potassium 3.7 mEq/L (3.5-5.1)
[2020-06-12] MEDS: Insulin LISPRO 300 UNITS/3 ML VIAL SUBQ SCH ×4 (08:56→21:01)
[2020-06-12] MEDS: Metoprolol XL (24 HR) Succ 25 MG TAB.ER.24H PO SCH ×2 (09:02→20:53)
[2020-06-12] MEDS: *HR* Amiodarone 200 MG TABLET PO SCH (09:02)
[2020-06-12] MEDS: Aspirin 81 MG TAB.CHEW PO SCH (09:03)
[2020-06-12] MEDS: Apixaban 5 MG TABLET PO SCH ×2 (09:03→20:54)
[2020-06-13 01:15] LABS: Basophils % 0.3 %; Eosinophils # 0.4 K/mcL (0.0-0.6); Eosinophils % 2.8 %; Hemoglobin 9.7 g/dL (12.9-16.9); Immature Granulocytes % 1.2 % (0-4); Lymphocytes # 1.4 K/mcL (0.6-4.6); Lymphocytes % 10.8 %; Mean Corpuscular HGB Conc 30.3 g/dL (31.6-35.5); Mean Corpuscular Volume 85.8 fL (83.0-100.0); Mean Platelet Volume 12.1 fL (9.4-12.4); Monocytes # 2.1 K/mcL (0.0-1.3); Monocytes % 16.2 %; Neutrophils # 8.9 K/mcL (1.6-8.9); Platelet Count 248 K/mcL (140-400); Red Blood Count 3.73 M/mcL (4.19-5.50); Red Cell Distribution Width 16.5 % (11.5-14.5); Segmented Neutrophils % 68.7 %; White Blood Count 12.9 K/mcL (4.3-11.1)
[2020-06-13 01:35] LABS: Calcium 8.6 mg/dL (8.6-10.3); Potassium 3.3 mEq/L (3.5-5.1)
[2020-06-13] MEDS ORDERED: *HR* Heparin 10,000 UNIT/10 ML VIAL IV PRN (07:36)
[2020-06-13] MEDS ORDERED: 0.9 % Sodium Chloride 250 ML IVC PRN (07:36)
[2020-06-13] MEDS ORDERED: 0.9 % Sodium Chloride 1,000 ML PRIME SCH (07:45)
[2020-06-13] MEDS: Insulin LISPRO 300 UNITS/3 ML VIAL SUBQ SCH ×2 (08:43→13:38)
[2020-06-13] MEDS ORDERED: Finasteride 5 MG TABLET PO SCH (09:00)
[2020-06-13 10:40] LABS: Hematocrit 31.8 % (37.5-50.1); Hemoglobin 9.7 g/dL (12.9-16.9)
[2020-06-13] MEDS: Apixaban 5 MG TABLET PO SCH (13:26)
[2020-06-13] MEDS: *HR* Amiodarone 200 MG TABLET PO SCH (13:26)
[2020-06-13] MEDS: Aspirin 81 MG TAB.CHEW PO SCH (13:26)
[2020-06-13] MEDS: Metoprolol XL (24 HR) Succ 25 MG TAB.ER.24H PO SCH (13:31)
[2020-06-13 14:09] LABS: Adenovirus Not Detected (Not Detect); Bordetella Pertussis Not Detected (Not Detect); Chlamydophila pneumoniae Not Detected (Not Detect); Coronavirus 229E Not Detected (Not Detect); Coronavirus HKU1 Not Detected (Not Detect); Coronavirus NL63 Not Detected (Not Detect); Coronavirus OC43 Not Detected (Not Detect); Human Metapneumovirus Not Detected (Not Detect); Human Rhinovirus/Enterovirus Not Detected (Not Detect); Influenza A Subtype 2009 H1 Not Detected (Not Detect); Influenza B Not Detected (Not Detect); Mycoplasma pneumoniae Not Detected (Not Detect); Parainfluenza Virus 1 Not Detected (Not Detect); Parainfluenza Virus 2 Not Detected (Not Detect); Parainfluenza Virus 3 Not Detected (Not Detect); Parainfluenza Virus 4 Not Detected (Not Detect); Respiratory Syncytial Virus Not Detected (Not Detect); SARS-CoV-2 Not Detected (Not Detect)
[2020-06-13 16:34] VITALS: BP 113/63
== END 2020-06-13 17:20 ==
LOC: 2ANU → ICNU 05-27 05:44 → SUATTDRO 05-27 16:11 → 2NNU 06-05 01:18
PROVIDERS: ADMIT Student in an Organized Health Care Education/Training Program; ATTEND Family Medicine

== ENCOUNTER 2020-07-06 22:55 | Inpatient (IN) ==
[2020-07-07] MEDS ORDERED: Acetaminophen 325 MG TABLET PO PRN (04:15)
[2020-07-07] MEDS ORDERED: Ondansetron 4 MG/2 ML VIAL IVP PRN (04:15)
[2020-07-07] MEDS ORDERED: Naloxone 0.4 MG/ML INJ IVP PRN (04:15)
[2020-07-07 04:53] LABS: Basophils # 0.1 K/mcL (0.0-0.2); Basophils % 0.6 %; Eosinophils # 0.2 K/mcL (0.0-0.6); Eosinophils % 1.8 %; Hematocrit 34.6 % (37.5-50.1); Hemoglobin 10.4 g/dL (12.9-16.9); Immature Granulocytes % 0.4 % (0-4); Lymphocytes # 1.5 K/mcL (0.6-4.6); Lymphocytes % 14.4 %; Mean Corpuscular HGB Conc 30.1 g/dL (31.6-35.5); Mean Corpuscular Hemoglobin 28.1 pg (28.0-33.3); Mean Platelet Volume 11.3 fL (9.4-12.4); Monocytes # 1.4 K/mcL (0.0-1.3); Monocytes % 13.1 %; Neutrophils # 7.2 K/mcL (1.6-8.9); Platelet Count 269 K/mcL (140-400); Red Cell Distribution Width 19.9 % (11.5-14.5); Segmented Neutrophils % 69.7 %; White Blood Count 10.3 K/mcL (4.3-11.1)
[2020-07-07 04:59] LABS: Mean Corpuscular Volume 93.5 fL (83.0-100.0)
[2020-07-07 05:03] LABS: INR 1.7; Prothrombin Time 19.1 Seconds (9.4-12.1)
[2020-07-07 05:05] LABS: Alanine Aminotransferase 13 Units/L (7-52); Albumin 3.4 g/dL (3.5-5.7); Albumin/Globulin Ratio 1.1 (1.1-2.2); Alkaline Phosphatase 115 Units/L (34-104); Aspartate Amino Transferase 16 Units/L (13-39); BUN/Creatinine Ratio 8 (6-26); Bilirubin,Total 0.8 mg/dL (0.3-1.0); Blood Urea Nitrogen 20 mg/dL (8-23); Carbon Dioxide 30 mEq/L (23-29); Chloride 100 mEq/L (98-107); Globulin 3.2 g/dL (2.4-3.5); Glucose 164 mg/dL (70-105); Magnesium 1.6 mg/dL (1.6-2.6); Osmolality,Calculated 296 (280-300); Potassium 4.3 mEq/L (3.5-5.1); Sodium 140 mEq/L (136-145); Total Protein 6.6 g/dL (6.4-8.9); Troponin I < 0.03 ng/mL (< 0.04); eGFR For African Americans 30 (> 60); eGFR For Non-African Americans 25 (> 60)
[2020-07-07 05:08] LABS: Bilirubin,Urine Negative (Negative); Blood,Urine Large (Negative); Clarity,Urine Ex.Turbid (Clear); Color,Urine Dark-Brown (Yellow); Glucose,Urine (UA) Normal (Normal); Ketones,Urine Negative (Negative); Leukocyte Esterase,Urine Small (Negative); Nitrite,Urine Negative (Negative); Protein,Urine 200 mg/dL (Neg-Trace); RBC,Urine TNTC per hpf (0-3); Urobilinogen,Urine Normal (Normal); WBC,Urine TNTC per hpf (0-3)
[2020-07-07] MEDS ORDERED: D5% in Water 1,000 ML IVC PRN (06:42)
[2020-07-07] MEDS ORDERED: *HR* Dextrose 50 % in Water (Vial) 50 ML VIAL IVP PRN (06:42)
[2020-07-07] MEDS ORDERED: Dextrose Gel 15 GM/37.5 ML TUBE PO PRN ×2 (06:42)
[2020-07-07] MEDS: Insulin LISPRO 300 UNITS/3 ML VIAL SUBQ SCH ×3 (08:34→17:32)
[2020-07-07] MEDS ORDERED: cefTRIAXone 1,000 MG in 0.9 % Sodium Chloride Mini Bag 100 ML IVPB SCH (09:00)
[2020-07-07] MEDS: *HR* LORazepam 2 MG/ML VIAL IVP PRN ×2 (10:52→21:09)
[2020-07-07] MEDS: cefTRIAXone 1,000 MG in 0.9 % Sodium Chloride Mini Bag 100 ML IVPB SCH (10:54)
[2020-07-07] MEDS: Azithromycin 500 MG in 0.9 % Sodium Chloride 250 ML IVPB SCH (10:55)
[2020-07-07] MEDS ORDERED: *HR* LORazepam 2 MG/ML VIAL IVP STA (15:21)
[2020-07-07] MEDS ORDERED: *HR* LORazepam 2 MG/ML VIAL IVP ONE (22:38)
[2020-07-07] MEDS ORDERED: Haloperidol Lactate 5 MG/ML VIAL IVP ONE (22:51)
[2020-07-08 03:28] LABS: Basophils # 0.1 K/mcL (0.0-0.2); Basophils % 0.6 %; Eosinophils # 0.3 K/mcL (0.0-0.6); Eosinophils % 3.6 %; Hematocrit 33.1 % (37.5-50.1); Hemoglobin 9.9 g/dL (12.9-16.9); Immature Granulocytes % 0.4 % (0-4); Lymphocytes % 10.5 %; Mean Corpuscular HGB Conc 29.9 g/dL (31.6-35.5); Mean Corpuscular Hemoglobin 28.4 pg (28.0-33.3); Mean Corpuscular Volume 94.8 fL (83.0-100.0); Mean Platelet Volume 11.5 fL (9.4-12.4); Monocytes # 1.3 K/mcL (0.0-1.3); Monocytes % 13.7 %; Neutrophils # 6.7 K/mcL (1.6-8.9); Platelet Count 241 K/mcL (140-400); Red Blood Count 3.49 M/mcL (4.19-5.50); Red Cell Distribution Width 19.9 % (11.5-14.5); Segmented Neutrophils % 71.2 %; White Blood Count 9.5 K/mcL (4.3-11.1)
[2020-07-08 03:44] LABS: Calcium 8.9 mg/dL (8.6-10.3); Potassium 4.5 mEq/L (3.5-5.1)
[2020-07-08] MEDS: *HR* LORazepam 2 MG/ML VIAL IVP PRN ×4 (05:12→23:27)
[2020-07-08] MEDS: Metoprolol XL (24 HR) Succ 25 MG TAB.ER.24H PO SCH (08:29)
[2020-07-08] MEDS: *HR* Amiodarone 200 MG TABLET PO SCH (08:29)
[2020-07-08] MEDS: Apixaban 5 MG TABLET PO SCH ×2 (08:29→20:10)
[2020-07-08] MEDS: Aspirin 81 MG TAB.CHEW PO SCH (08:29)
[2020-07-08] MEDS: Finasteride 5 MG TABLET PO SCH (08:29)
[2020-07-08] MEDS: cefTRIAXone 1,000 MG in 0.9 % Sodium Chloride Mini Bag 100 ML IVPB SCH (08:31)
[2020-07-08] MEDS: Azithromycin 500 MG in 0.9 % Sodium Chloride 250 ML IVPB SCH (08:32)
[2020-07-08] MEDS: Insulin LISPRO 300 UNITS/3 ML VIAL SUBQ SCH ×3 (08:35→18:28)
[2020-07-09 00:24] LABS: ABG Base Excess 3 mEq/L (-2 to 3); ABG HCO3 30 mEq/L (21-27); ABG Oxygen Saturation 89 % (95-98); ABG PCO2 56 mmHg (35-45); ABG PH 7.34 pH Units (7.32-7.45); ABG PO2 61 mmHg (85-104); ABG TCO2 32 mEq/L (20-26)
[2020-07-09] MEDS ORDERED: Furosemide 40 MG/4 ML VIAL IVP ONE (00:34)
[2020-07-09] MEDS ORDERED: Ipratropium/Albuterol Neb 3 ML IH PRN (00:35)
[2020-07-09] MEDS ORDERED: Furosemide 40 MG/4 ML VIAL ONE (00:37)
[2020-07-09 01:22] LABS: Basophils # 0.1 K/mcL (0.0-0.2); Basophils % 0.5 %; Eosinophils # 0.2 K/mcL (0.0-0.6); Eosinophils % 1.9 %; Hematocrit 33.8 % (37.5-50.1); Hemoglobin 10.1 g/dL (12.9-16.9); Immature Granulocytes % 0.4 % (0-4); Lymphocytes % 8.3 %; Mean Corpuscular HGB Conc 29.9 g/dL (31.6-35.5); Mean Corpuscular Hemoglobin 28.5 pg (28.0-33.3); Mean Corpuscular Volume 95.2 fL (83.0-100.0); Mean Platelet Volume 11.3 fL (9.4-12.4); Monocytes # 1.4 K/mcL (0.0-1.3); Monocytes % 11.2 %; Neutrophils # 9.3 K/mcL (1.6-8.9); Platelet Count 269 K/mcL (140-400); Red Blood Count 3.55 M/mcL (4.19-5.50); Red Cell Distribution Width 19.9 % (11.5-14.5); Segmented Neutrophils % 77.7 %
[2020-07-09 01:38] LABS: Calcium 9.1 mg/dL (8.6-10.3); Potassium 4.7 mEq/L (3.5-5.1)
[2020-07-09] MEDS ORDERED: *HR* LORazepam 2 MG/ML VIAL IVP ONE (03:29)
[2020-07-09] MEDS: Insulin LISPRO 300 UNITS/3 ML VIAL SUBQ SCH ×3 (07:40→18:39)
[2020-07-09] MEDS: Aspirin 81 MG TAB.CHEW PO SCH (08:38)
[2020-07-09] MEDS: Finasteride 5 MG TABLET PO SCH (08:38)
[2020-07-09] MEDS: Apixaban 5 MG TABLET PO SCH ×2 (08:38→21:38)
[2020-07-09] MEDS: Azithromycin 500 MG in 0.9 % Sodium Chloride 250 ML IVPB SCH (08:39)
[2020-07-09] MEDS: *HR* Amiodarone 200 MG TABLET PO SCH (08:39)
[2020-07-09] MEDS: Metoprolol XL (24 HR) Succ 25 MG TAB.ER.24H PO SCH (08:39)
[2020-07-09] MEDS: cefTRIAXone 1,000 MG in 0.9 % Sodium Chloride Mini Bag 100 ML IVPB SCH (10:00)
[2020-07-09 12:04] LABS: Hepatitis B Surface Antibody 3.32 mIU/mL
[2020-07-09 12:15] LABS: Hepatitis B Surface Antigen Nonreactive (Nonreactive)
[2020-07-09 13:07] LABS: ABG Base Excess 4 mEq/L (-2 to 3); ABG HCO3 29 mEq/L (21-27); ABG Oxygen Saturation 97 % (95-98); ABG PCO2 47 mmHg (35-45); ABG PO2 92 mmHg (85-104); ABG TCO2 31 mEq/L (20-26); Blood Gas Modality BiLevel
[2020-07-09] MEDS ORDERED: *HR* Heparin 10,000 UNIT/10 ML VIAL IV PRN (13:24)
[2020-07-09] MEDS ORDERED: 0.9 % Sodium Chloride 250 ML IVC PRN (13:24)
[2020-07-09] MEDS ORDERED: 0.9 % Sodium Chloride 1,000 ML PRIME SCH (13:30)
[2020-07-09] MEDS ORDERED: Vancomycin 1 EACH in 0.9 % Sodium Chloride 250 ML IVPB PRN (13:32)
[2020-07-09] MEDS ORDERED: Vancomycin 1,750 MG/517.5 ML IV.SOLN IVPB ONE (16:00)
[2020-07-09] MEDS: Cefepime HCl 1,000 MG in Water for inj. (sterile) 10 ML IVP SCH (18:31)
[2020-07-10 02:53] LABS: Basophils # 0.1 K/mcL (0.0-0.2); Basophils % 0.4 %; Eosinophils # 0.5 K/mcL (0.0-0.6); Eosinophils % 4.2 %; Hematocrit 31.1 % (37.5-50.1); Hemoglobin 9.4 g/dL (12.9-16.9); Immature Granulocytes % 0.5 % (0-4); Lymphocytes # 1.1 K/mcL (0.6-4.6); Lymphocytes % 9.5 %; Mean Corpuscular HGB Conc 30.2 g/dL (31.6-35.5); Mean Corpuscular Hemoglobin 28.3 pg (28.0-33.3); Mean Corpuscular Volume 93.7 fL (83.0-100.0); Mean Platelet Volume 11.7 fL (9.4-12.4); Monocytes # 1.2 K/mcL (0.0-1.3); Monocytes % 10.2 %; Neutrophils # 8.5 K/mcL (1.6-8.9); Platelet Count 207 K/mcL (140-400); Red Blood Count 3.32 M/mcL (4.19-5.50); Red Cell Distribution Width 19.9 % (11.5-14.5); Segmented Neutrophils % 75.2 %; White Blood Count 11.3 K/mcL (4.3-11.1)
[2020-07-10 03:13] LABS: Calcium 8.7 mg/dL (8.6-10.3); Potassium 4.1 mEq/L (3.5-5.1)
[2020-07-10] MEDS: Finasteride 5 MG TABLET PO SCH (09:37)
[2020-07-10] MEDS: Apixaban 5 MG TABLET PO SCH ×2 (09:37→20:18)
[2020-07-10] MEDS: *HR* Amiodarone 200 MG TABLET PO SCH (09:37)
[2020-07-10] MEDS: Aspirin 81 MG TAB.CHEW PO SCH (09:37)
[2020-07-10] MEDS: Metoprolol XL (24 HR) Succ 25 MG TAB.ER.24H PO SCH (09:37)
[2020-07-10] MEDS: Insulin LISPRO 300 UNITS/3 ML VIAL SUBQ SCH ×3 (09:42→16:36)
[2020-07-10] MEDS: Cefepime HCl 1,000 MG in Water for inj. (sterile) 10 ML IVP SCH (17:13)
[2020-07-11 04:47] LABS: Basophils % 0.4 %; Eosinophils # 0.4 K/mcL (0.0-0.6); Eosinophils % 3.4 %; Hematocrit 30.9 % (37.5-50.1); Hemoglobin 9.5 g/dL (12.9-16.9); Immature Granulocytes % 0.4 % (0-4); Lymphocytes # 1.2 K/mcL (0.6-4.6); Lymphocytes % 11.3 %; Mean Corpuscular HGB Conc 30.7 g/dL (31.6-35.5); Mean Corpuscular Hemoglobin 28.4 pg (28.0-33.3); Mean Corpuscular Volume 92.2 fL (83.0-100.0); Mean Platelet Volume 11.3 fL (9.4-12.4); Monocytes # 1.4 K/mcL (0.0-1.3); Monocytes % 13.3 %; Neutrophils # 7.7 K/mcL (1.6-8.9); Platelet Count 217 K/mcL (140-400); Red Blood Count 3.35 M/mcL (4.19-5.50); Red Cell Distribution Width 19.9 % (11.5-14.5); Segmented Neutrophils % 71.2 %; White Blood Count 10.8 K/mcL (4.3-11.1)
[2020-07-11 04:52] LABS: Calcium 8.8 mg/dL (8.6-10.3)
[2020-07-11] MEDS ORDERED: *HR* Heparin 10,000 UNIT/10 ML VIAL IV PRN ×2 (07:15)
[2020-07-11] MEDS ORDERED: 0.9 % Sodium Chloride 250 ML IVC PRN (07:15)
[2020-07-11] MEDS: Aspirin 81 MG TAB.CHEW PO SCH (07:39)
[2020-07-11] MEDS: Finasteride 5 MG TABLET PO SCH (07:39)
[2020-07-11] MEDS: Apixaban 5 MG TABLET PO SCH ×2 (07:39→19:51)
[2020-07-11] MEDS: Insulin LISPRO 300 UNITS/3 ML VIAL SUBQ SCH ×3 (08:09→16:35)
[2020-07-11] MEDS: *HR* Amiodarone 200 MG TABLET PO SCH (12:30)
[2020-07-11] MEDS: Metoprolol XL (24 HR) Succ 25 MG TAB.ER.24H PO SCH (12:30)
[2020-07-11] MEDS: Cefepime HCl 1,000 MG in Water for inj. (sterile) 10 ML IVP SCH (15:17)
[2020-07-11] MEDS ORDERED: Vancomycin 500 MG in 0.9 % Sodium Chloride Mini Bag 100 ML IVPB ONE (16:00)
[2020-07-12 06:21] LABS: Basophils # 0.1 K/mcL (0.0-0.2); Basophils % 0.7 %; Eosinophils # 0.4 K/mcL (0.0-0.6); Eosinophils % 3.9 %; Hematocrit 31.9 % (37.5-50.1); Hemoglobin 9.8 g/dL (12.9-16.9); Immature Granulocytes % 0.5 % (0-4); Lymphocytes # 1.6 K/mcL (0.6-4.6); Lymphocytes % 15.3 %; Mean Corpuscular HGB Conc 30.7 g/dL (31.6-35.5); Mean Corpuscular Hemoglobin 28.8 pg (28.0-33.3); Mean Corpuscular Volume 93.8 fL (83.0-100.0); Mean Platelet Volume 11.5 fL (9.4-12.4); Monocytes # 1.4 K/mcL (0.0-1.3); Monocytes % 13.2 %; Neutrophils # 6.8 K/mcL (1.6-8.9); Platelet Count 219 K/mcL (140-400); Segmented Neutrophils % 66.4 %; White Blood Count 10.3 K/mcL (4.3-11.1)
[2020-07-12 06:58] LABS: Calcium 8.7 mg/dL (8.6-10.3)
[2020-07-12] MEDS: *HR* LORazepam 2 MG/ML VIAL IVP PRN (07:23)
[2020-07-12] MEDS: Metoprolol XL (24 HR) Succ 25 MG TAB.ER.24H PO SCH (07:27)
[2020-07-12] MEDS: Aspirin 81 MG TAB.CHEW PO SCH (07:27)
[2020-07-12] MEDS: Finasteride 5 MG TABLET PO SCH (07:27)
[2020-07-12] MEDS: *HR* Amiodarone 200 MG TABLET PO SCH (07:27)
[2020-07-12] MEDS: Apixaban 5 MG TABLET PO SCH ×2 (07:27→20:01)
[2020-07-12] MEDS: Insulin LISPRO 300 UNITS/3 ML VIAL SUBQ SCH ×3 (08:22→17:17)
[2020-07-12] MEDS ORDERED: Haloperidol Lactate 5 MG/ML VIAL IVP ONE (08:49)
[2020-07-12] MEDS: Cefuroxime PO 250 MG TABLET PO SCH (17:16)
[2020-07-13 03:40] LABS: Hematocrit 30.4 % (37.5-50.1); Hemoglobin 9.5 g/dL (12.9-16.9); Mean Corpuscular HGB Conc 31.3 g/dL (31.6-35.5); Mean Corpuscular Hemoglobin 28.8 pg (28.0-33.3); Mean Corpuscular Volume 92.1 fL (83.0-100.0); Mean Platelet Volume 11.5 fL (9.4-12.4); Platelet Count 212 K/mcL (140-400); Red Cell Distribution Width 19.9 % (11.5-14.5); White Blood Count 9.4 K/mcL (4.3-11.1)
[2020-07-13 03:59] LABS: Calcium 9.1 mg/dL (8.6-10.3)
[2020-07-13] MEDS ORDERED: *HR* Heparin 10,000 UNIT/10 ML VIAL IV PRN ×2 (07:24)
[2020-07-13] MEDS ORDERED: 0.9 % Sodium Chloride 250 ML IVC PRN (07:24)
[2020-07-13] MEDS: Insulin LISPRO 300 UNITS/3 ML VIAL SUBQ SCH ×3 (07:30→18:38)
[2020-07-13] MEDS ORDERED: 0.9 % Sodium Chloride 1,000 ML PRIME SCH (07:30)
[2020-07-13] MEDS: *HR* Amiodarone 200 MG TABLET PO SCH (13:23)
[2020-07-13] MEDS: Apixaban 5 MG TABLET PO SCH ×2 (13:23→20:44)
[2020-07-13] MEDS: Finasteride 5 MG TABLET PO SCH (13:24)
[2020-07-13] MEDS: Metoprolol XL (24 HR) Succ 25 MG TAB.ER.24H PO SCH (13:24)
[2020-07-13] MEDS: Aspirin 81 MG TAB.CHEW PO SCH (13:24)
[2020-07-13] MEDS ORDERED: Haloperidol Lactate 5 MG/ML VIAL IVP ONE (16:57)
[2020-07-13] MEDS ORDERED: Haloperidol Lactate 5 MG/ML VIAL IM ONE (17:26)
[2020-07-13] MEDS: Cefuroxime PO 250 MG TABLET PO SCH (18:38)
[2020-07-13] MEDS ORDERED: QUEtiapine Fumarate 25 MG TABLET PO SCH (21:00)
[2020-07-14 06:20] LABS: Hematocrit 31.2 % (37.5-50.1); Hemoglobin 9.6 g/dL (12.9-16.9); Mean Corpuscular HGB Conc 30.8 g/dL (31.6-35.5); Mean Corpuscular Hemoglobin 28.6 pg (28.0-33.3); Mean Corpuscular Volume 92.9 fL (83.0-100.0); Mean Platelet Volume 11.2 fL (9.4-12.4); Platelet Count 192 K/mcL (140-400); Red Blood Count 3.36 M/mcL (4.19-5.50); Red Cell Distribution Width 19.4 % (11.5-14.5); White Blood Count 8.9 K/mcL (4.3-11.1)
[2020-07-14 06:26] LABS: Calcium 8.9 mg/dL (8.6-10.3); Potassium 3.8 mEq/L (3.5-5.1)
[2020-07-14] MEDS ORDERED: Haloperidol Lactate 5 MG/ML VIAL IVP STA (09:06)
[2020-07-14] MEDS: Insulin LISPRO 300 UNITS/3 ML VIAL SUBQ SCH ×3 (09:31→16:29)
[2020-07-14] MEDS: Metoprolol XL (24 HR) Succ 25 MG TAB.ER.24H PO SCH (09:40)
[2020-07-14] MEDS: Finasteride 5 MG TABLET PO SCH (09:40)
[2020-07-14] MEDS: *HR* Amiodarone 200 MG TABLET PO SCH (09:45)
[2020-07-14] MEDS: Apixaban 5 MG TABLET PO SCH ×2 (09:45→19:37)
[2020-07-14] MEDS: Aspirin 81 MG TAB.CHEW PO SCH (09:45)
[2020-07-14] MEDS: *HR* LORazepam 2 MG/ML VIAL IVP PRN (11:07)
[2020-07-14] MEDS: Cefuroxime PO 250 MG TABLET PO SCH (16:40)
[2020-07-14] MEDS: QUEtiapine Fumarate 25 MG TABLET PO SCH (19:36)
[2020-07-15] MEDS: Apixaban 5 MG TABLET PO SCH ×2 (09:22→21:34)
[2020-07-15] MEDS: *HR* Amiodarone 200 MG TABLET PO SCH (09:22)
[2020-07-15] MEDS: Metoprolol XL (24 HR) Succ 25 MG TAB.ER.24H PO SCH (09:22)
[2020-07-15] MEDS: Finasteride 5 MG TABLET PO SCH (09:22)
[2020-07-15] MEDS: Aspirin 81 MG TAB.CHEW PO SCH (09:22)
[2020-07-15] MEDS: Insulin LISPRO 300 UNITS/3 ML VIAL SUBQ SCH ×3 (09:24→16:15)
[2020-07-15] MEDS: Nystatin POWDER 30 GM BOTTLE TP SCH ×2 (11:00→21:34)
[2020-07-15 11:26] LABS: Basophils # 0.1 K/mcL (0.0-0.2); Basophils % 0.5 %; Eosinophils # 0.4 K/mcL (0.0-0.6); Eosinophils % 3.7 %; Hematocrit 31.7 % (37.5-50.1); Hemoglobin 9.7 g/dL (12.9-16.9); Immature Granulocytes % 0.4 % (0-4); Lymphocytes % 9.7 %; Mean Corpuscular HGB Conc 30.6 g/dL (31.6-35.5); Mean Corpuscular Hemoglobin 28.8 pg (28.0-33.3); Mean Corpuscular Volume 94.1 fL (83.0-100.0); Mean Platelet Volume 10.8 fL (9.4-12.4); Monocytes # 1.1 K/mcL (0.0-1.3); Monocytes % 10.6 %; Neutrophils # 7.5 K/mcL (1.6-8.9); Platelet Count 204 K/mcL (140-400); Red Blood Count 3.37 M/mcL (4.19-5.50); Red Cell Distribution Width 19.4 % (11.5-14.5); Segmented Neutrophils % 75.1 %
[2020-07-15 12:22] LABS: Calcium 8.8 mg/dL (8.6-10.3); Potassium 3.9 mEq/L (3.5-5.1)
[2020-07-15] MEDS: Cefuroxime PO 250 MG TABLET PO SCH (16:14)
[2020-07-15] MEDS: QUEtiapine Fumarate 25 MG TABLET PO SCH (21:34)
[2020-07-16 07:06] LABS: Calcium 8.9 mg/dL (8.6-10.3); Potassium 3.9 mEq/L (3.5-5.1)
[2020-07-16] MEDS ORDERED: 0.9 % Sodium Chloride 250 ML IVC PRN (07:38)
[2020-07-16] MEDS ORDERED: *HR* Heparin 10,000 UNIT/10 ML VIAL IV PRN (07:38)
[2020-07-16] MEDS ORDERED: 0.9 % Sodium Chloride 1,000 ML PRIME SCH (07:45)
[2020-07-16] MEDS: Insulin LISPRO 300 UNITS/3 ML VIAL SUBQ SCH ×2 (09:50→11:33)
[2020-07-16] MEDS: *HR* Amiodarone 200 MG TABLET PO SCH (09:51)
[2020-07-16] MEDS: Apixaban 5 MG TABLET PO SCH (09:51)
[2020-07-16] MEDS: Aspirin 81 MG TAB.CHEW PO SCH (09:51)
[2020-07-16] MEDS: Metoprolol XL (24 HR) Succ 25 MG TAB.ER.24H PO SCH (10:05)
[2020-07-16] MEDS: Finasteride 5 MG TABLET PO SCH (10:05)
[2020-07-16] MEDS: Nystatin POWDER 30 GM BOTTLE TP SCH (10:06)
[2020-07-16] MEDS ORDERED: Albumin 25% 25gram/100mL 25 GM/100 ML IV.SOLN ONE (10:36)
[2020-07-16] MEDS ORDERED: Albumin 25% 25gram/100mL 25 GM/100 ML IV.SOLN IVPB PRN (10:53)
[2020-07-16 12:53] VITALS: BP 101/79
== END 2020-07-16 13:22 | DRG 291 ==
LOC: 2ANU → SUATTDRO 07-07 03:45 → 2ANU 07-07 12:30
PROVIDERS: ADMIT Student in an Organized Health Care Education/Training Program; ATTEND Student in an Organized Health Care Education/Training Program